=== PATIENT | female | born 1955 | race American Indian/Alaskan Native ===

== ENCOUNTER 2017-01-22 12:39 | Emergency (ER) | payer MEDICARE ==
[2017-01-22 13:20] VITALS: BP 111/72
--- NOTE | 2017-01-22 15:04 | Emergency Department Report ---
HPI - General Chief Complaint: Pain General Time Seen by Provider: 01/22/17 14:59 - HPI HPI: She is a 61-year-old female with a history of DJD and C-spine surgery in 2008 who presents to ED complaining of back of the neck pain to shoulder pain 10 days. Patient states the past couple of weeks she's been under a lot of stress lifting her sick brother in law that she is taking care of. Patient states she decided 6 deaths in the family and has been under a lot of stress. Patient states the heavy lifting and started to affect her DJD and is causing some pain in her neck. Describes pain as aching in nature and nonradiating localized to her back of her shoulders. She denies any recent trauma Denies fevers/chills/nausea/vomiting/pain or any other problems. ED Past Medical Hx - Past Medical History Previous Medical History?: Yes Hx Arthritis: Yes Additional medical history: DJD, Cervical Spine pain, Back pain - Surgical History Past Surgical History?: Yes Additional Surgical History: cervical spine surgery, x2, Ectopic , Bunionectomy on both feet - Social History Smoking Status: Current Every Day Smoker Substance Use Type: Alcohol, Prescribed - Medications Home Medications: Home Medications Medication Instructions Recorded Confirmed Last Taken Type Baclofen [Lioresal] 5 mg PO TID #24 tab 01/22/17 Unknown Rx Diclofenac Potassium 50 mg PO DAILY #30 tablet 01/22/17 Unknown Rx Promethazine /Codeine 5 ml PO Q6H PRN #60 ml 01/22/17 Unknown Rx [Phenergan/Codeine 6.25-10 mg/5Ml] traMADol [Ultram] 50 mg PO Q6HR PRN #24 tablet 01/22/17 Unknown Rx ED Review of Systems ROS: Stated complaint: DEGENERATE BONE DISEASE/PAIN Other details as noted in HPI Constitutional: denies: chills, fever Eyes: denies: eye pain, eye discharge, vision change ENT: denies: ear pain, throat pain Respiratory: denies: cough, shortness of breath, wheezing Cardiovascular: denies: chest pain, palpitations Endocrine: no symptoms reported Gastrointestinal: denies: abdominal pain, nausea, diarrhea Genitourinary: denies: urgency, dysuria, discharge Musculoskeletal: denies: back pain, joint swelling, arthralgia Skin: denies: rash, lesions Neurological: denies: headache, weakness, paresthesias Psychiatric: denies: anxiety, depression Hematological/Lymphatic: denies: easy bleeding, easy bruising Physical Exam - Physical Exam Vital Signs: Vital Signs 01/22/17 13:15 Temperature 97.5 F L Pulse Rate 75 Respiratory 18 Rate Blood Pressure 111/72 O2 Sat by Pulse 99 Oximetry Physical Exam: GENERAL: Alert and oriented x3, no apparent distress, Normal Gait, atraumatic. HEAD: Head is normocephalic and a-traumatic. EYES: Extra ocular muscles are intact. Pupils are equal, round, and reactive to light and accommodation. NECK: Supple. Non edematous. No lymphadenopathy or thyromegaly. No C-spine tenderness. Tenderness to palpation of the trapezius muscles. Full range of motion of the neck LUNGS: Symetrical with respiration, No wheezing, no rales or crackles, CTAB. HEART: S1, S2 present, regular rate and rhythm without murmur, no rubs, no gallops. Non tender to palpation EXTREMITIES/MUSCULOSKELETAL: No cyanosis, clubbing, rash, lesions or edema. Full ROM bilaterally. UE/LE Pulses 2+ bilaterally. NEUROLOGIC: The patient is cooperative with no focal neurologic deficits. Cranial nerves II through XII are grossly intact. Normal speech. PSYCHIATRIC: Mood is congruent with affect, denies suicidal or homicidal ideations. SKIN: Warm and dry, No lesions, No ulceration or induration present. ED Course Vital Signs 01/22/17 13:15 Temperature 97.5 F L Pulse Rate 75 Respiratory 18 Rate Blood Pressure 111/72 O2 Sat by Pulse 99 Oximetry ED Medical Decision Making - Medical Decision Making 61-year-old female presents with cervical radiculopathy. ED course: Patient received prednisone, Toradol, pain medication and ED today. His constipation or follow-up with her primary care physician Dr. Curtis Discussed the patient to follow-up with orthopedics as referred. Discussed with the patient to take her medication as prescribed and follow up. Status signs the patient is in no acute distress she reports feeling better prior to discharge. Critical care attestation.: If time is entered above; I have spent that time in minutes in the direct care of this critically ill patient, excluding procedure time. ED Disposition Clinical Impression: Cervical radiculopathy Disposition: - TO HOME OR SELFCARE Is pt being admited?: No Does the pt Need Aspirin: No Condition: Stable Instructions: Cervical Radiculopathy (ED) Prescriptions: Baclofen [Lioresal] 5 mg PO TID #24 tab Diclofenac Potassium 50 mg PO DAILY #30 tablet Promethazine /Codeine [Phenergan/Codeine 6.25-10 mg/5Ml] 5 ml PO Q6H PRN #60 ml PRN Reason: cough traMADol [Ultram] 50 mg PO Q6HR PRN #24 tablet PRN Reason: Pain Referrals: PRIMARY CARE, [Primary Care Provider] - 3-5 Days AD CLARKE MD [Referring] - 3-5 Days MITCHELL VALDES MD [Staff Physician] - 3-5 Days Forms: Work/School Release Form(ED), Accompanied Note Time of Disposition: 15:39
[2017-01-22] MEDS ORDERED: DELTASONE PO ONE (15:14)
[2017-01-22] MEDS ORDERED: NORCO 5/325 PO ONE (15:14)
[2017-01-22] MEDS ORDERED: TORADOL IM ONE (15:14)
== END 2017-01-22 16:08 | disposition home or self-care (01) ==
LOC: ED 12:39
DX: M54.12 Radiculopathy, cervical region (principal); M19.90 Unspecified osteoarthritis, unspecified site; F17.210 Nicotine dependence, cigarettes, uncomplicated
CPT/HCPCS: 96372; 99282; J1885; J7512

== ENCOUNTER 2017-06-12 13:44 | Emergency (ER) | payer MEDICARE ==
[2017-06-12 14:04] VITALS: BP 119/84
--- NOTE | 2017-06-12 16:47 | Emergency Department Report ---
ED Medical Clearance HPI - General Chief complaint: Medical Clearance Stated complaint: NEEDS MEDICAL CLEARANCE Time Seen by Provider: 06/12/17 16:43 Source: patient Mode of arrival: Ambulatory Limitations: No Limitations - History of Present Illness Initial comments: This is a 62 y.o. F, requesting clearance for [employer]. States she is bipolar and been off her meds for months. She has been self medicating with cocaine, but now the world seems overwhelming for her right now. Denies SI/HI. -: month(s) (3-6 months, unsure) Reason for Medical Clearance: psychiatric condition (bipolar) Alledged Intoxication: No Compliant with Home Medications: No (Stopped taking bipolar medicine months ago) Traumatic Symptoms: denies traumatic injury Associated Symptoms: denies: chest pain, shortness of breath, palpitations, diaphoresis, denies other symptoms, confusion, cough, fever/chills, headaches, anorexia, malaise, nausea/vomiting, rash, seizure, syncope, weakness Treatments Prior to Arrival: none, other Home medications: Previous Rx's Medication Instructions Recorded Last Taken Type Baclofen [Lioresal] 5 mg PO TID #24 tab 01/22/17 Unknown Rx Diclofenac Potassium 50 mg PO DAILY #30 tablet 01/22/17 Unknown Rx Promethazine /Codeine 5 ml PO Q6H PRN #60 ml 01/22/17 Unknown Rx [Phenergan/Codeine 6.25-10 mg/5Ml] traMADol [Ultram] 50 mg PO Q6HR PRN #24 tablet 01/22/17 Unknown Rx Sertraline [Zoloft] 25 mg PO QDAY 30 Days #30 tab 06/12/17 Unknown Rx Allergies/Adverse reactions: Allergies Allergy/AdvReac Type Severity Reaction Status Date / Time No Known Allergies Allergy Unverified 11/08/14 09:26 ED Review of Systems ROS: Stated complaint: NEEDS MEDICAL CLEARANCE Other details as noted in HPI Constitutional: no symptoms reported Eyes: as per HPI ENT: as per HPI Respiratory: no symptoms reported Cardiovascular: as per HPI Endocrine: no symptoms reported Neurological: as per HPI Psychiatric: anxiety, depression. denies: auditory hallucinations, visual hallucinations, homicidal thoughts, suicidal thoughts ED Past Medical Hx - Past Medical History Previous Medical History?: Yes Hx Arthritis: Yes Hx Psychiatric Treatment: Yes (Depression, Anxiety, bi-polar) Additional medical history: DJD, Cervical Spine pain, Back pain - Surgical History Past Surgical History?: Yes Additional Surgical History: cervical spine surgery, x2, Ectopic , Bunionectomy on both feet - Social History Smoking Status: Never Smoker Substance Use Type: Alcohol, Cocaine - Medications Home Medications: Home Medications Medication Instructions Recorded Confirmed Last Taken Type Baclofen [Lioresal] 5 mg PO TID #24 tab 01/22/17 Unknown Rx Diclofenac Potassium 50 mg PO DAILY #30 tablet 01/22/17 Unknown Rx Promethazine /Codeine 5 ml PO Q6H PRN #60 ml 01/22/17 Unknown Rx [Phenergan/Codeine 6.25-10 mg/5Ml] traMADol [Ultram] 50 mg PO Q6HR PRN #24 tablet 01/22/17 Unknown Rx Sertraline [Zoloft] 25 mg PO QDAY 30 Days #30 tab 06/12/17 Unknown Rx ED Physical Exam - General Limitations: No Limitations General appearance: alert, in no apparent distress, other (tearful) - Head Head exam: Present: normal inspection - Eye Eye exam: Present: normal appearance, PERRL. Absent: EOMI, scleral icterus, conjunctival injection, nystagmus, periorbital swelling, periorbital tenderness - Respiratory Respiratory exam: Present: normal lung sounds bilaterally. Absent: respiratory distress, wheezes, rales, rhonchi, stridor, chest wall tenderness, accessory muscle use, decreased breath sounds, prolonged expiratory - Cardiovascular Cardiovascular Exam: Present: regular rate, normal rhythm, normal heart sounds. Absent: bradycardia, tachycardia, irregular rhythm, systolic murmur, diastolic murmur, rubs, gallop, clicks - GI/Abdominal GI/Abdominal exam: Present: soft, normal bowel sounds. Absent: distended, tenderness, guarding, rebound, rigid, diminished bowel sounds, hyperactive bowel sounds, hypoactive bowel sounds, organomegaly, mass, bruit, pulsatile mass , hernia - Neurological Exam Neurological exam: Present: alert, oriented X3, CN II-XII intact, normal gait. Absent: altered, abnormal gait, motor sensory deficit, reflexes normal - Psychiatric Psychiatric exam: Present: depressed. Absent: normal affect, normal mood, anxious, flat affect, manic, homicidal ideation, suicidal ideation - Skin Skin exam: Present: warm, dry, intact. Absent: normal color, rash, cyanosis, diaphoretic, erythema, urticaria, vesicles, petechiae, pallor, abrasion, ecchymosis ED Course Vital Signs 06/12/17 13:58 Temperature 98.2 F Pulse Rate 68 Respiratory 98 H Rate Blood Pressure 119/84 O2 Sat by Pulse 100 Oximetry ED Disposition Clinical Impression: Depression, acute, Drug abuse and dependence Disposition: DC-01 TO HOME OR SELFCARE Is pt being admited?: No Does the pt Need Aspirin: No Condition: Stable Instructions: Depression (ED), Suicide Prevention for Adults (ED), Medical Clearance for Substance Abuse Treatment (ED) Additional Instructions: Nick Snow [facility] [phone] Prescriptions: Sertraline [Zoloft] 25 mg PO QDAY 30 Days #30 tab Referrals: Michelle Salas [Other] - 3-5 Days Time of Disposition: 17:11 Print Language: KAZAKH
[2017-06-12 17:33] LABS: Urine Drugs of Abuse Note Disclamer
== END 2017-06-12 18:19 | disposition home or self-care (01) ==
LOC: ED 13:44
DX: F31.9 Bipolar disorder, unspecified (principal); F14.20 Cocaine dependence, uncomplicated; M19.90 Unspecified osteoarthritis, unspecified site; F41.9 Anxiety disorder, unspecified; Z79.899 Other long term (current) drug therapy
CPT/HCPCS: 80307; 99283

== ENCOUNTER 2018-01-30 16:58 | Emergency (ER) | payer MEDICARE ==
[2018-01-30 17:21] VITALS: BP 103/70
[2018-01-30] MEDS ORDERED: TYLENOL PO ONE (17:21)
[2018-01-30 18:14] LABS: Bacteria,Urine 1+ /HPF (Negative); Bilirubin,Urine NEG (Negative); Blood,Urine MOD (Negative); Color,Urine Yellow (Yellow); Mucus,Urine FEW /HPF
--- NOTE | 2018-01-30 22:55 | Emergency Department Report ---
ED General Adult HPI - General Chief complaint: Weakness Stated complaint: FLU LIKE SYMPTOMS Time Seen by Provider: 01/30/18 22:47 Source: patient Mode of arrival: Ambulatory Limitations: No Limitations - History of Present Illness Initial comments: 62-year-old -[place] female presents to the emergency room for complaints of fever or chills lymph node enlargement urinary frequency urinary urgency for the last 5 days. Patient reports that she tried to get in her primary care doctor's office but he had no openings. Patient reports a past medical history of bipolar depression DJD, cervical spine pain back pain. She is currently stopped taking her Zoloft in the last month. Patient did come in febrile at 101.3 in triage. -: days(s) (5) Severity scale (0 -10): 3 Consistency: intermittent Improves with: none Worsens with: none Associated Symptoms: fever/chills Treatments Prior to Arrival: none - Related Data Previous Rx's Medication Instructions Recorded Last Taken Type Baclofen [Lioresal] 5 mg PO TID #24 tab 01/22/17 Unknown Rx Diclofenac Potassium 50 mg PO DAILY #30 tablet 01/22/17 Unknown Rx Promethazine /Codeine 5 ml PO Q6H PRN #60 ml 01/22/17 Unknown Rx [Phenergan/Codeine 6.25-10 mg/5Ml] traMADol [Ultram] 50 mg PO Q6HR PRN #24 tablet 01/22/17 Unknown Rx Sertraline [Zoloft] 25 mg PO QDAY 30 Days #30 tab 06/12/17 Unknown Rx Nitrofurantoin Monohyd/M-Cryst 100 mg PO BID 10 Days #20 capsule 01/30/18 Unknown Rx [Macrobid 100 mg Capsule] Allergies Allergy/AdvReac Type Severity Reaction Status Date / Time No Known Allergies Allergy Verified 01/30/18 17:17 ED Review of Systems ROS: Stated complaint: FLU LIKE SYMPTOMS Other details as noted in HPI Constitutional: chills, fever Genitourinary: urgency, frequency Musculoskeletal: denies: back pain, joint swelling, arthralgia Skin: denies: rash, lesions Neurological: denies: headache, weakness, paresthesias Psychiatric: denies: anxiety, depression ED Past Medical Hx - Past Medical History Hx Arthritis: Yes Hx Psychiatric Treatment: Yes (Depression, Anxiety, bi-polar) Additional medical history: DJD, Cervical Spine pain, Back pain - Surgical History Additional Surgical History: cervical spine surgery, x2, Ectopic , Bunionectomy on both feet - Social History Smoking Status: Current Some Day Smoker Substance Use Type: None - Medications Home Medications: Home Medications Medication Instructions Recorded Confirmed Last Taken Type Baclofen [Lioresal] 5 mg PO TID #24 tab 01/22/17 Unknown Rx Diclofenac Potassium 50 mg PO DAILY #30 tablet 01/22/17 Unknown Rx Promethazine /Codeine 5 ml PO Q6H PRN #60 ml 01/22/17 Unknown Rx [Phenergan/Codeine 6.25-10 mg/5Ml] traMADol [Ultram] 50 mg PO Q6HR PRN #24 tablet 01/22/17 Unknown Rx Sertraline [Zoloft] 25 mg PO QDAY 30 Days #30 tab 06/12/17 Unknown Rx Nitrofurantoin Monohyd/M-Cryst 100 mg PO BID 10 Days #20 capsule 01/30/18 Unknown Rx [Macrobid 100 mg Capsule] ED Physical Exam - General Limitations: No Limitations General appearance: alert, in no apparent distress - Head Head exam: Present: atraumatic, normocephalic - Eye Eye exam: Present: normal appearance - ENT ENT exam: Present: mucous membranes moist - Respiratory Respiratory exam: Present: normal lung sounds bilaterally. Absent: respiratory distress - Cardiovascular Cardiovascular Exam: Present: regular rate, normal rhythm. Absent: systolic murmur, diastolic murmur, rubs, gallop - GI/Abdominal GI/Abdominal exam: Present: soft. Absent: distended, tenderness, guarding - Extremities Exam Extremities exam: Present: normal inspection - Back Exam Back exam: Present: normal inspection - Neurological Exam Neurological exam: Present: alert, oriented X3 - Psychiatric Psychiatric exam: Present: normal affect, normal mood - Skin Skin exam: Present: warm, dry, intact, normal color. Absent: rash ED Course Vital Signs 01/30/18 01/30/18 17:17 21:13 Temperature 101.3 F H 98.2 F Pulse Rate 89 Respiratory 16 Rate Blood Pressure 103/70 O2 Sat by Pulse 97 Oximetry Critical care attestation.: If time is entered above; I have spent that time in minutes in the direct care of this critically ill patient, excluding procedure time. ED Disposition Clinical Impression: UTI (urinary tract infection) Qualifiers: Urinary tract infection type: acute cystitis Hematuria presence: with hematuria Qualified Code(s): N30.01 - Acute cystitis with hematuria Disposition: TO HOME OR SELFCARE Is pt being admited?: No Does the pt Need Aspirin: No Condition: Stable Instructions: Urinary Tract Infection in Women (ED) Additional Instructions: Please complete antibiotics as prescribed. Please increase her fluid intake such as water by 1 L. Please follow-up with your primary care provider in the next 3-5 days to have a repeat urinalysis. Prescriptions: Nitrofurantoin Monohyd/M-Cryst [Macrobid 100 mg Capsule] 100 mg PO BID 10 Days # 20 capsule Referrals: PRIMARY CARE, [Primary Care Provider] - 3-5 Days Forms: Work/School Release Form(ED)
== END 2018-01-30 23:22 | disposition home or self-care (01) ==
LOC: ED 16:58
DX: N30.01 Acute cystitis with hematuria (principal); M19.90 Unspecified osteoarthritis, unspecified site; F31.9 Bipolar disorder, unspecified; F41.9 Anxiety disorder, unspecified; Z72.0 Tobacco use; Z90.89 Acquired absence of other organs
CPT/HCPCS: 81001; 87086; 99283

== ENCOUNTER 2018-06-04 14:17 | Outpatient (CLI) | payer MEDICARE ==
[2018-06-04 14:44] LABS: Basophils % (Auto) 0.3 % (0.0-1.8); Eosinophils % (Auto) 0.9 % (0.0-4.3); Hematocrit 34.6 % (30.3-42.9); Hemoglobin 11.8 gm/dl (10.1-14.3); Lymphocytes % (Auto) 30.7 % (13.4-35.0); Mean Corpuscular HGB Conc 34 % (30-34); Mean Corpuscular Volume 104 fl (79-97); Monocytes # (Auto) 0.3 K/mm3 (0.0-0.8); Monocytes % (Auto) 8.5 % (0.0-7.3); Platelet Count 152 K/mm3 (140-440); Red Blood Count 3.32 M/mm3 (3.65-5.03); Red Cell Distribution Width 12.9 % (13.2-15.2)
[2018-06-04 15:08] LABS: Alanine Aminotransferase 22 units/L (7-56)
== END 2018-06-04 14:18 | disposition home or self-care (01) ==
LOC: LAB 14:17
PROVIDERS: ATTEND Psychiatry & Neurology Psychiatry
DX: Z79.899 Other long term (current) drug therapy (principal); Z87.891 Personal history of nicotine dependence; M19.90 Unspecified osteoarthritis, unspecified site
CPT/HCPCS: 36415; 80164; 84450; 84460; 85025

== ENCOUNTER 2018-07-23 10:36 | Outpatient (CLI) | payer MEDICARE ==
--- NOTE | 2018-07-24 08:09 | Mammography Report ---
BILATERAL DIGITAL SCREENING MAMMOGRAM with CAD: 07/23/18 10:36:00 CLINICAL: Routine screening. COMPARISON:03/14/16 FINDINGS: The breasts are heterogeneously dense, which may obscure small masses. No mass, architectural distortion or suspicious calcifications. IMPRESSION: No mammographic evidence of malignancy. BI-RADS CATEGORY: 1 - - Negative RECOMMENDATION: Routine mammographic screening in one year. COMMENT: Patient follow-up letters are generated by our [employer] application.
== END 2018-07-23 10:37 | disposition home or self-care (01) ==
LOC: MAMMO 10:36
PROVIDERS: ATTEND Internal Medicine
DX: Z12.31 Encounter for screening mammogram for malignant neoplasm of breast (principal); M19.90 Unspecified osteoarthritis, unspecified site
CPT/HCPCS: 77067

== ENCOUNTER 2018-08-07 10:02 | Outpatient (CLI) | payer MEDICARE | END 2018-08-07 10:03 | disposition home or self-care (01) | LOC: LAB 10:02 | PROVIDERS: ATTEND Psychiatry & Neurology Psychiatry | DX: F31.4 Bipolar disorder, current episode depressed, severe, without psychotic features (principal); M19.90 Unspecified osteoarthritis, unspecified site; Z87.891 Personal history of nicotine dependence | CPT/HCPCS: 36415; 80164 ==

== ENCOUNTER 2019-06-03 15:27 | Emergency (ER) | payer MEDICARE ==
--- NOTE | 2019-06-03 15:51 | Event Note ---
ED Screening Note Date of service: 06/03/19 Time: 15:44 ED Screening Note: reports CP and sob. Pain to mid chest and in shoulders. Pain feels like something heavy on chest and like ribs breaking. Cold x 3 weeks with chills. Runnynose. Reports bodyache. Reports h/o smoker, eczema and depression. Taking nyquil, alkaseltzer, otc cough syrup A&O x3 nad Lungs, congested cough, rhonci cleared with coughing CV: S1S2 Regular Chest pain Shortness of breath Cough This initial assessment/diagnostic orders/clinical plan/treatment(s) is/are subject to change based on patients health status, clinical progression and re- assessment by fellow clinical providers in the ED. Further treatment and workup at subsequent clinical providers discretion. Patient/guardian urged not to elope from the ED as their condition may be serious if not clinically assessed and managed. Initial orders include: EKG,CXR,Labs
--- NOTE | 2019-06-03 16:02 | Emergency Department Report ---
ED Shortness of Breath HPI - General Chief Complaint: Dyspnea/Respdistress Stated Complaint: CHEST PAIN/VINAYAK Time Seen by Provider: 06/03/19 15:44 Source: patient Mode of arrival: Ambulatory Limitations: No Limitations - History of Present Illness Initial Comments: Patient is 64 years old female with no significant past medical history except for previous neck surgery 10 years ago. Patient presented to the ER complaining of two-week history of cough, congestion and chest pain. Patient describes her chest pain is sharp and increases with coughing and movement. Patient denied any fever or chills. No nausea or vomiting. MD Complaint: cough, chest pain - Related Data Previous Rx's Medication Instructions Recorded Last Taken Type Baclofen [Lioresal] 5 mg PO TID #24 tab 01/22/17 Unknown Rx Diclofenac Potassium 50 mg PO DAILY #30 tablet 01/22/17 Unknown Rx Promethazine /Codeine 5 ml PO Q6H PRN #60 ml 01/22/17 Unknown Rx [Phenergan/Codeine 6.25-10 mg/5Ml] traMADoL [Ultram] 50 mg PO Q6HR PRN #24 tablet 01/22/17 Unknown Rx Sertraline [Zoloft] 25 mg PO QDAY 30 Days #30 tab 06/12/17 Unknown Rx Nitrofurantoin Monohyd/M-Cryst 100 mg PO BID 10 Days #20 capsule 01/30/18 Unknown Rx [Macrobid 100 mg Capsule] Allergies Allergy/AdvReac Type Severity Reaction Status Date / Time No Known Allergies Allergy Verified 01/30/18 17:17 ED Review of Systems ROS: Stated complaint: CHEST PAIN/VINAYAK Other details as noted in HPI Comment: All other systems reviewed and negative Constitutional: denies: chills, fever Respiratory: cough, shortness of breath. denies: SOB with exertion, SOB at rest, wheezing Cardiovascular: chest pain. denies: palpitations, dyspnea on exertion Gastrointestinal: denies: abdominal pain, nausea, vomiting Neurological: denies: headache, weakness, numbness, paresthesias, confusion, abnormal gait ED Past Medical Hx - Past Medical History Previous Medical History?: Yes Hx Arthritis: Yes Hx Psychiatric Treatment: Yes (Depression, Anxiety, bi-polar) Additional medical history: DJD, Cervical Spine pain, Back pain - Surgical History Past Surgical History?: Yes Additional Surgical History: cervical spine surgery, x2, Ectopic , Bunionectomy on both feet - Social History Smoking Status: Current Some Day Smoker Substance Use Type: None - Medications Home Medications: Home Medications Medication Instructions Recorded Confirmed Last Taken Type Baclofen [Lioresal] 5 mg PO TID #24 tab 01/22/17 Unknown Rx Diclofenac Potassium 50 mg PO DAILY #30 tablet 01/22/17 Unknown Rx Promethazine /Codeine 5 ml PO Q6H PRN #60 ml 01/22/17 Unknown Rx [Phenergan/Codeine 6.25-10 mg/5Ml] traMADoL [Ultram] 50 mg PO Q6HR PRN #24 tablet 01/22/17 Unknown Rx Sertraline [Zoloft] 25 mg PO QDAY 30 Days #30 tab 06/12/17 Unknown Rx Nitrofurantoin Monohyd/M-Cryst 100 mg PO BID 10 Days #20 capsule 01/30/18 Unknown Rx [Macrobid 100 mg Capsule] ED Physical Exam - General Limitations: No Limitations General appearance: alert, in no apparent distress - Head Head exam: Present: atraumatic, normocephalic, normal inspection - Eye Eye exam: Present: normal appearance - ENT ENT exam: Present: normal exam, normal orophraynx, mucous membranes moist - Neck Neck exam: Present: normal inspection, full ROM. Absent: tenderness, meningismus, lymphadenopathy, thyromegaly - Respiratory Respiratory exam: Present: normal lung sounds bilaterally, chest wall tenderness. Absent: respiratory distress, wheezes, rales, rhonchi, stridor, accessory muscle use, decreased breath sounds, prolonged expiratory - Cardiovascular Cardiovascular Exam: Present: regular rate, normal rhythm, normal heart sounds - GI/Abdominal GI/Abdominal exam: Present: soft, normal bowel sounds. Absent: distended, tenderness, guarding, rebound, rigid, organomegaly, mass, bruit, pulsatile mass, hernia - Extremities Exam Extremities exam: Present: normal inspection, full ROM, normal capillary refill. Absent: pedal edema, calf tenderness - Back Exam Back exam: Present: normal inspection, full ROM. Absent: CVA tenderness (R), CVA tenderness (L), muscle spasm, paraspinal tenderness, vertebral tenderness - Neurological Exam Neurological exam: Present: alert, oriented X3, CN II-XII intact, normal gait, reflexes normal - Psychiatric Psychiatric exam: Present: normal mood - Skin Skin exam: Present: warm, intact, normal color ED Course Vital Signs 06/03/19 06/03/19 06/03/19 15:41 16:10 16:11 Temperature 98.1 F 98.2 F Pulse Rate 76 61 Respiratory 22 17 14 Rate Blood Pressure 99/74 Blood Pressure 116/80 [Left] O2 Sat by Pulse 99 97 100 Oximetry 06/03/19 06/03/19 06/03/19 16:15 16:37 16:45 Temperature Pulse Rate 67 Respiratory 16 Rate Blood Pressure 128/88 128/88 116/82 Blood Pressure [Left] O2 Sat by Pulse 99 99 100 Oximetry 06/03/19 06/03/19 06/03/19 17:00 17:15 17:30 Temperature Pulse Rate 65 60 61 Respiratory 24 14 21 Rate Blood Pressure 114/75 104/68 99/64 Blood Pressure [Left] O2 Sat by Pulse 100 95 98 Oximetry 06/03/19 06/03/19 06/03/19 17:46 18:00 18:15 Temperature Pulse Rate 64 60 61 Respiratory 13 15 20 Rate Blood Pressure 99/64 106/69 108/75 Blood Pressure [Left] O2 Sat by Pulse 90 98 Oximetry 06/03/19 06/03/19 06/03/19 18:30 18:45 19:00 Temperature Pulse Rate 58 L 56 L 63 Respiratory 10 L 17 20 Rate Blood Pressure 99/59 110/73 104/70 Blood Pressure [Left] O2 Sat by Pulse 97 99 98 Oximetry 06/03/19 19:15 Temperature Pulse Rate 55 L Respiratory 12 Rate Blood Pressure 108/69 Blood Pressure [Left] O2 Sat by Pulse 97 Oximetry ED Medical Decision Making - Lab Data Result diagrams: 06/03/19 16:02 06/03/19 16:02 - EKG Data -: EKG Interpreted by Al EKG shows normal: sinus rhythm Rate: normal - EKG Data Interpretation: no acute changes - Radiology Data Radiology results: report reviewed - Medical Decision Making Patient is 64 years old female with no significant past medical history except for previous neck surgery 10 years ago. Patient presented to the ER complaining of two-week history of cough, congestion and chest pain. Patient describes her chest pain is sharp and increases with coughing and movement. Patient denied any fever or chills. No nausea or vomiting. Labs reviewed and is unremarkable including 2 sets of troponin. Chest x-ray is unremarkable. Patient stated that suspends completely resolved. Patient symptoms consistent with acute bronchitis. Patient given a prescription for amoxicillin and Robitussin advised to follow-up with her primary care physician in the next 2-3 days and to return to the ER if symptoms are not improved Critical care attestation.: If time is entered above; I have spent that time in minutes in the direct care of this critically ill patient, excluding procedure time. ED Disposition Clinical Impression: Chest pain, Acute bronchitis, Costochondritis, acute Disposition: DC-01 TO HOME OR SELFCARE Is pt being admited?: No Condition: Stable Instructions: Chest Pain (ED), Acute Bronchitis (ED), Costochondritis (ED) Referrals: PRIMARY CARE, [Primary Care Provider] - 3-5 Days
[2019-06-03 16:41] LABS: Basophils % (Auto) 0.4 % (0.0-1.8); Eosinophils % (Auto) 0.9 % (0.0-4.3); Hematocrit 41.9 % (30.3-42.9); Lymphocytes # (Auto) 0.6 K/mm3 (1.2-5.4); Lymphocytes % (Auto) 13.5 % (13.4-35.0); Mean Corpuscular HGB Conc 33 % (30-34); Mean Corpuscular Volume 106 fl (79-97); Monocytes # (Auto) 0.4 K/mm3 (0.0-0.8); Monocytes % (Auto) 8.7 % (0.0-7.3); Platelet Count 250 K/mm3 (140-440); Red Blood Count 3.95 M/mm3 (3.65-5.03); Red Cell Distribution Width 12.7 % (13.2-15.2)
[2019-06-03 16:57] LABS: Alanine Aminotransferase 23 units/L (7-56); Albumin 4.6 g/dL (3.9-5); BUN/Creatinine Ratio 11; Blood Urea Nitrogen 9 mg/dL (7-17); Calcium 10.2 mg/dL (8.4-10.2); Hemolysis Index 58
--- NOTE | 2019-06-03 17:14 | XRay Report ---
CHEST 2 VIEWS INDICATION / CLINICAL INFORMATION: cough, cp, chills 3 weeks. COMPARISON: None available. FINDINGS: SUPPORT DEVICES: None. HEART / MEDIASTINUM: No significant abnormality. LUNGS / PLEURA: No significant pulmonary or pleural abnormality. No pneumothorax. ADDITIONAL FINDINGS: Cholecystectomy clips. Cervical fixation hardware. IMPRESSION: 1. No acute findings. Signer Name: Nadia Leigh MD Signed: 06/03/2019 5:09 PM Workstation Name: [email or web address]
[2019-06-03] MEDS ORDERED: ONDANSETRON 4 MG/2 ML INJ IV ONE (19:28)
[2019-06-03] MEDS ORDERED: fentaNYL 250 MCG/5 ML INJ IV ONE (19:29)
[2019-06-03] MEDS ORDERED: fentaNYL 100 MCG/2 ML INJ ONE (19:37)
[2019-06-03] MEDS ORDERED: AMOXICILLIN 500 MG CAP PO ONE (21:20)
[2019-06-03 22:53] VITALS: BP 106/71
== END 2019-06-03 21:00 | disposition home or self-care (01) ==
LOC: ED 15:27
DX: J20.9 Acute bronchitis, unspecified (principal); M94.0 Chondrocostal junction syndrome [Tietze]; M19.90 Unspecified osteoarthritis, unspecified site; F32.9 Major depressive disorder, single episode, unspecified; F31.9 Bipolar disorder, unspecified; F17.200 Nicotine dependence, unspecified, uncomplicated
CPT/HCPCS: 36415; 71046; 80053; 84484; 85025; 93005; 93010; 96374; 96375; 99284; J2405; J3010

== ENCOUNTER 2019-11-27 21:40 | Emergency (ER) | payer MEDICARE ==
--- NOTE | 2019-11-27 23:51 | Emergency Department Report ---
ED Psych HPI - General Chief Complaint: Anxiety Stated Complaint: ANXEITY ATTACK Time Seen by Provider: 11/27/19 23:09 Source: patient Mode of arrival: Ambulatory - History of Present Illness Initial Comments: 64-year-old female with history of bipolar disorder presents to ED with depression and suicidal ideation. Patient reports that she took 15 Ativan pills 3 hours ago, around 8 PM. When asked if this is a suicide attempt, patient states, "sort of." Patient also admits to drinking alcohol today. She denies any drug use. MD Complaint: suicidal ideation, feels depressed -: This evening Associated Psychiatric Symptoms: depression, suicidal ideation Quality: constant Improves With: none Worsens With: none Context: significant life stressor Associated Symptoms: denies other symptoms Treatments Prior to Arrival: none If Self Harm: intentional overdose - Related Data Previous Rx's Medication Instructions Recorded Last Taken Type Baclofen [Lioresal] 5 mg PO TID #24 tab 01/22/17 Unknown Rx Diclofenac Potassium 50 mg PO DAILY #30 tablet 01/22/17 Unknown Rx Promethazine /Codeine 5 ml PO Q6H PRN #60 ml 01/22/17 Unknown Rx [Phenergan/Codeine 6.25-10 mg/5Ml] traMADoL [Ultram] 50 mg PO Q6HR PRN #24 tablet 01/22/17 Unknown Rx Sertraline [Zoloft] 25 mg PO QDAY 30 Days #30 tab 06/12/17 Unknown Rx Nitrofurantoin Monohyd/M-Cryst 100 mg PO BID 10 Days #20 capsule 01/30/18 Unknown Rx [Macrobid 100 mg Capsule] Amoxicillin [Amoxicillin TAB] 875 mg PO BID #14 tablet 06/03/19 Unknown Rx Naproxen [Naprosyn] 500 mg PO BID #14 tablet 06/03/19 Unknown Rx guaiFENesin [Robitussin] 5 ml PO TID PRN #100 ml 06/03/19 Unknown Rx Allergies Allergy/AdvReac Type Severity Reaction Status Date / Time No Known Allergies Allergy Verified 01/30/18 17:17 ED Review of Systems ROS: Stated complaint: ANXEITY ATTACK Other details as noted in HPI Comment: All other systems reviewed and negative Psychiatric: depression, suicidal thoughts. denies: auditory hallucinations, visual hallucinations, homicidal thoughts ED Past Medical Hx - Past Medical History Previous Medical History?: Yes Hx Arthritis: Yes Hx Psychiatric Treatment: Yes (Depression, Anxiety, bi-polar) Additional medical history: DJD, Cervical Spine pain, Back pain - Surgical History Past Surgical History?: Yes Additional Surgical History: cervical spine surgery, x2, Ectopic , Bunionectomy on both feet - Social History Smoking Status: Current Every Day Smoker Substance Use Type: None - Medications Home Medications: Home Medications Medication Instructions Recorded Confirmed Last Taken Type Baclofen [Lioresal] 5 mg PO TID #24 tab 01/22/17 Unknown Rx Diclofenac Potassium 50 mg PO DAILY #30 tablet 01/22/17 Unknown Rx Promethazine /Codeine 5 ml PO Q6H PRN #60 ml 01/22/17 Unknown Rx [Phenergan/Codeine 6.25-10 mg/5Ml] traMADoL [Ultram] 50 mg PO Q6HR PRN #24 tablet 01/22/17 Unknown Rx Sertraline [Zoloft] 25 mg PO QDAY 30 Days #30 tab 06/12/17 Unknown Rx Nitrofurantoin Monohyd/M-Cryst 100 mg PO BID 10 Days #20 capsule 01/30/18 Unknown Rx [Macrobid 100 mg Capsule] Amoxicillin [Amoxicillin TAB] 875 mg PO BID #14 tablet 06/03/19 Unknown Rx Naproxen [Naprosyn] 500 mg PO BID #14 tablet 06/03/19 Unknown Rx guaiFENesin [Robitussin] 5 ml PO TID PRN #100 ml 06/03/19 Unknown Rx ED Physical Exam - General Limitations: No Limitations General appearance: alert, in no apparent distress, appears intoxicated - Head Head exam: Present: atraumatic, normocephalic - Eye Eye exam: Present: normal appearance, PERRL, EOMI - ENT ENT exam: Present: mucous membranes moist - Neck Neck exam: Present: normal inspection - Respiratory Respiratory exam: Present: normal lung sounds bilaterally. Absent: respiratory distress - Cardiovascular Cardiovascular Exam: Present: regular rate, normal rhythm - GI/Abdominal GI/Abdominal exam: Absent: distended - Extremities Exam Extremities exam: Present: normal inspection - Neurological Exam Neurological exam: Present: alert, oriented X3 - Psychiatric Psychiatric exam: Present: depressed, suicidal ideation - Skin Skin exam: Present: warm, dry, intact, normal color ED Course Vital Signs 11/27/19 11/27/19 11/28/19 22:24 23:52 00:00 Temperature 98.6 F Pulse Rate 73 66 Respiratory 18 16 Rate Blood Pressure 135/89 127/81 Blood Pressure [Left] O2 Sat by Pulse 99 100 92 Oximetry 11/28/19 11/28/19 11/28/19 00:16 00:28 00:30 Temperature 98.0 F Pulse Rate 60 64 58 L Respiratory 13 16 15 Rate Blood Pressure 82/29 82/29 Blood Pressure 123/76 [Left] O2 Sat by Pulse 97 100 97 Oximetry 11/28/19 11/28/19 11/28/19 00:46 01:00 01:16 Temperature Pulse Rate 58 L 56 L 62 Respiratory 15 14 14 Rate Blood Pressure 82/29 95/59 95/59 Blood Pressure [Left] O2 Sat by Pulse 97 96 97 Oximetry 11/28/19 11/28/19 11/28/19 01:30 01:45 02:00 Temperature Pulse Rate 60 56 L 62 Respiratory 20 16 15 Rate Blood Pressure 95/59 95/59 101/62 Blood Pressure [Left] O2 Sat by Pulse 89 99 91 Oximetry 11/28/19 11/28/19 11/28/19 02:16 02:30 02:46 Temperature Pulse Rate 62 60 64 Respiratory 14 14 13 Rate Blood Pressure 95/59 95/59 95/59 Blood Pressure [Left] O2 Sat by Pulse 91 94 92 Oximetry 11/28/19 11/28/19 11/28/19 03:00 03:16 03:30 Temperature Pulse Rate 70 56 L 53 L Respiratory 18 16 13 Rate Blood Pressure 95/59 132/77 132/77 Blood Pressure [Left] O2 Sat by Pulse 98 99 98 Oximetry 11/28/19 11/28/19 11/28/19 03:46 04:00 04:16 Temperature 98.2 F Pulse Rate 55 L 60 54 L Respiratory 12 14 13 Rate Blood Pressure 132/77 105/74 105/74 Blood Pressure [Left] O2 Sat by Pulse 100 95 100 Oximetry 11/28/19 11/28/19 11/28/19 04:30 04:46 05:00 Temperature Pulse Rate 49 L 53 L 52 L Respiratory 13 14 18 Rate Blood Pressure 105/74 105/74 105/74 Blood Pressure [Left] O2 Sat by Pulse 99 99 99 Oximetry 11/28/19 11/28/19 11/28/19 05:16 05:30 05:46 Temperature Pulse Rate 51 L 51 L 51 L Respiratory 14 16 13 Rate Blood Pressure 112/79 112/79 112/79 Blood Pressure [Left] O2 Sat by Pulse 98 100 100 Oximetry 11/28/19 11/28/19 11/28/19 06:00 06:16 06:30 Temperature Pulse Rate 55 L 42 L 43 L Respiratory 14 16 15 Rate Blood Pressure 112/79 112/79 112/79 Blood Pressure [Left] O2 Sat by Pulse 98 100 95 Oximetry 11/28/19 11/28/19 11/28/19 06:46 07:00 07:15 Temperature Pulse Rate 46 L 44 L 50 L Respiratory 14 13 14 Rate Blood Pressure 134/89 134/89 112/79 Blood Pressure [Left] O2 Sat by Pulse 100 100 100 Oximetry 11/28/19 11/28/19 07:31 11:00 Temperature Pulse Rate 55 L 56 L Respiratory 13 16 Rate Blood Pressure 130/78 Blood Pressure 109/73 [Left] O2 Sat by Pulse 100 100 Oximetry ED Medical Decision Making - Lab Data Result diagrams: 11/27/19 23:42 11/27/19 23:42 - Medical Decision Making 64 yo F reports ETOH use and suicide attempt by taking 15 ativan pills 3 hrs prior to me examining her. Pt may have take some ativan, but I do not believe she took as many as she stated since she is alert and oriented with normal vitals and normal mentation. She is not drowsy or lethargic, but she does seem a bit intoxicated. Poison Control was contacted and advised to monitor pt for 8 hrs post-ingestion, which would be until 4AM. Labs unremarkable. Mental health consult ordered. Will dispo per psych. - Differential Diagnosis depression Critical care attestation.: If time is entered above; I have spent that time in minutes in the direct care of this critically ill patient, excluding procedure time. ED Disposition Clinical Impression: Depression, Suicidal ideations, Cocaine abuse Disposition: DC-01 TO HOME OR SELFCARE Is pt being admited?: No Condition: Stable Instructions: Cocaine Abuse (ED), Depression (ED), Suicide Prevention for Adults (ED) Additional Instructions: Please follow-up with a primary care physician as soon as you are able to do so when you are done with the psychiatric facility. Please avoid any further cocaine or illicit drug use. Call 911 or get to the closest emergency department with any thoughts of harming your self or others, or with any acute distress. Referrals: PRIMARY CARE, [Primary Care Provider] - [facility]
[2019-11-27 23:54] LABS: Basophils % (Auto) 0.5 % (0.0-1.8); Eosinophils # (Auto) 0.1 K/mm3 (0.0-0.4); Eosinophils % (Auto) 2.3 % (0.0-4.3); Hematocrit 39.2 % (30.3-42.9); Hemoglobin 13.2 gm/dl (10.1-14.3); Lymphocytes # (Auto) 1.3 K/mm3 (1.2-5.4); Lymphocytes % (Auto) 36.9 % (13.4-35.0); Mean Corpuscular HGB Conc 34 % (30-34); Mean Corpuscular Volume 106 fl (79-97); Monocytes # (Auto) 0.3 K/mm3 (0.0-0.8); Monocytes % (Auto) 8.5 % (0.0-7.3); Platelet Count 191 K/mm3 (140-440); Red Cell Distribution Width 13.5 % (13.2-15.2)
[2019-11-28 00:14] LABS: BUN/Creatinine Ratio 16; Blood Urea Nitrogen 11 mg/dL (7-17); Calcium 9.5 mg/dL (8.4-10.2); Hemolysis Index 13
[2019-11-28 01:05] LABS: Alanine Aminotransferase 14 units/L (7-56); Albumin 4.5 g/dL (3.9-5)
[2019-11-28 01:24] LABS: Bilirubin,Direct < 0.2 mg/dL (0-0.2)
[2019-11-28 02:11] LABS: RBC,Urine < 1.0 /HPF (0.0-6.0)
[2019-11-28 02:13] LABS: Bilirubin,Urine NEG (Negative); Blood,Urine MOD (Negative); Color,Urine Straw (Yellow); Protein,Urine <15 mg/dL mg/dL (Negative); Urobilinogen,Urine < 2.0 mg/dL (<2.0)
[2019-11-28 02:54] LABS: Amphetamine Screen,Urine PRESUMPTIVE NEGATIVE; Benzodiazepines Screen,Urine PRESUMPTIVE NEGATIVE; Cannabinoid Screen,Urine PRESUMPTIVE NEGATIVE; Methadone Screen,Urine PRESUMPTIVE NEGATIVE; Opiate Screen,Urine PRESUMPTIVE NEGATIVE
[2019-11-28 02:58] LABS: Cocaine Screen,Urine PRESUMPTIVE POSITIVE
[2019-11-28 12:56] VITALS: BP 109/73
== END 2019-11-28 15:04 | disposition home or self-care (01) ==
LOC: ED 21:40
DX: F32.9 Major depressive disorder, single episode, unspecified (principal); R45.851 Suicidal ideations; F14.10 Cocaine abuse, uncomplicated; M19.91 Primary osteoarthritis, unspecified site; F17.200 Nicotine dependence, unspecified, uncomplicated; Z98.890 Other specified postprocedural states; Z79.2 Long term (current) use of antibiotics; Z79.899 Other long term (current) drug therapy
CPT/HCPCS: 36415; 80048; 80076; 80307; 80320; 81001; 85025; 93005; G0480

== ENCOUNTER 2019-11-28 13:50 | Inpatient (IN) | payer MEDICARE ==
[2019-11-28] MEDS ORDERED: ZIPRASIDONE MESYLATE 20 MG VIAL IM PRN (14:05)
[2019-11-28 17:25] LABS: Basophils % (Auto) 0.5 % (0.0-1.8); Eosinophils # (Auto) 0.1 K/mm3 (0.0-0.4); Eosinophils % (Auto) 2.8 % (0.0-4.3); Hematocrit 38.7 % (30.3-42.9); Lymphocytes # (Auto) 0.7 K/mm3 (1.2-5.4); Lymphocytes % (Auto) 23.1 % (13.4-35.0); Mean Corpuscular HGB Conc 34 % (30-34); Mean Corpuscular Volume 106 fl (79-97); Monocytes # (Auto) 0.2 K/mm3 (0.0-0.8); Monocytes % (Auto) 6.3 % (0.0-7.3); Platelet Count 184 K/mm3 (140-440); Red Blood Count 3.64 M/mm3 (3.65-5.03); Red Cell Distribution Width 13.5 % (13.2-15.2)
[2019-11-28 17:27] LABS: Alanine Aminotransferase 14 units/L (7-56); Albumin 4.5 g/dL (3.9-5); BUN/Creatinine Ratio 10; Blood Urea Nitrogen 9 mg/dL (7-17); Calcium 9.7 mg/dL (8.4-10.2); Hemolysis Index 13; LDL Cholesterol,Direct 103 mg/dL (50-130)
[2019-11-28 17:48] LABS: Chol/HDL Ratio 2.14 %; HDL Cholesterol 100 mg/dL (40-59)
[2019-11-28] MEDS: traZODone 50 MG TAB PO SCH (21:47)
[2019-11-28] MEDS ORDERED: risperiDONE 0.25 MG TAB PO SCH (22:00)
--- NOTE | 2019-11-29 08:32 | History and Physical Report ---
GP History & Physical - History of Present Illness Date of admission: 11/28/19 Date of Examination: 11/29/19 Reason for Admission: Danger to self, Severe anxiety/depression History of Present Illness: Araceli Horta is a 64y/o female who states she was admitted to the [facility] floor for "depression and anxiety." During my interview with the patient, she is lying in bed. She is asleep. She easily arouses. She is oriented x 3. The patient makes fair eye contact. She is tearful at times during the interview. She verbalizes being "depressed." She also verbalizes being "suicidal with a plan to take pills." The patient says she "hears things but think they are in my mind." She says "it's hard to explain." The patient states she's had "two suicidal attempts" in the past. She says she's been admitted for psych related conditions "quite a few times." She says the last time she saw a psychiatrist was "last year." She says she was diagnosed with "bipolar disorder." The patient verbalized having "constant mood swings." She describes them as "up one minute, angry the next and then rock bottom." She says she takes "zoloft and trazodone." The patient also admits to using "crack a few days ago." She states she drinks alcohol "occasionally." She smokes "a pack of cigarets a week." PAST PSYCHIATRIC HISTORY: Diagnoses: Bipolar Suicide attempts or Self-harm behavior: twice Prior psychiatric hospitalizations: "quite a few times" Substance Abuse history: Crack, nicotine Previous psychiatric medications tried: Zoloft and Trazodone Outpatient treatment: Not at the present PAST MEDICAL HISTORY: None reported Family Psychiatric History: None reported or documented SOCIAL HISTORY Current living status: Homeless, was living with aunt Employment status: Retired Highest level of education: Some college Marital status: Legal history: Denies History of abuse: Crack REVIEW OF SYSTEMS Constitutional: Negative for weight loss ENT: Negative for stridor Respiratory: Negative for cough or hemoptysis All other systems reviewed and are negative MENTAL STATUS EXAMINATION General Appearance: Dressed appropriately Behavior: Tearful. Cooperative. Fair eye contact Mood: "Depressed" Affect: Congruent with stated mood Speech: Normal rate and tone Thought Process: Goal oriented Thought Content: Suicidal Ideation: Yes Homicidal Ideation: Denies Hallucinations: Yes Delusions: None elicited Insight and Judgment: Limited Memory/Cognition: Limited Assessment Bipolar Disorder, Severe, Current Episode Depressed w/Psychotic Features Treatment Plan Patient will be admitted for inpatient psychiatric evaluation, medication adjustment and close monitoring The patient's behavior, mood, sleep and appetite will be closely monitored. Patient will be enrolled in individual and group therapeutic sessions and encouraged to attend. Patient will be provided with a safe and structured environment. Patient's physical health needs will be addressed by the Hospitalist. Hospitalist Consulted Labs including CBC, CMP, Lipid profile and Hemoglobin A1C ordered Social Assessment will be completed and the Human Resources Records Clerk will work with patient and family to ensure a suitable and safe disposition Medication adjustment will be made as clinically indicated Usual Wellness Buddhist/Preservation: Restarted Home medications Increased Risperidone 0.5mg po BID Nicotine patch previously ordered The patient agreed on the treatment plan, understood the risk, benefit, alternative treatment, potential consequence of no treatment, and gave informed consent. - Certification Statement This is an acknowledgement statement that Nyida Horta is a 64y/o female who requires inpatient psychiatric admission for treatment which could reasonably be expected to improve the patient's condition for Major Depressive Disorder, Severe, with Psychotic Features Estimated period of time patient will need to remain in the hospital: [7] Plan for post-hospital care: [Outpatient] Legal Status: Voluntary Reaction to Hospitalization: Accepting Medications and Allergies Allergies Allergy/AdvReac Type Severity Reaction Status Date / Time No Known Allergies Allergy Verified 01/30/18 17:17 Home Medications Medication Instructions Recorded Confirmed Last Taken Type Baclofen [Lioresal] 5 mg PO TID #24 tab 01/22/17 11/29/19 Unknown Rx Diclofenac Potassium 50 mg PO DAILY #30 tablet 01/22/17 11/29/19 Unknown Rx Promethazine /Codeine 5 ml PO Q6H PRN #60 ml 01/22/17 11/29/19 Unknown Rx [Phenergan/Codeine 6.25-10 mg/5Ml] traMADoL [Ultram] 50 mg PO Q6HR PRN #24 tablet 01/22/17 11/29/19 Unknown Rx Sertraline [Zoloft] 25 mg PO QDAY 30 Days #30 tab 06/12/17 11/29/19 Unknown Rx Naproxen [Naprosyn] 500 mg PO BID #14 tablet 06/03/19 11/29/19 Unknown Rx guaiFENesin [Robitussin] 5 ml PO TID PRN #100 ml 06/03/19 11/29/19 Unknown Rx Active Meds: Active Medications Nicotine (Habitrol) 21 mg TD QDAY [facility] Risperidone (Risperdal) 0.25 mg PO BID [facility] Last Admin: 11/28/19 21:47 Dose: 0.25 mg Documented by: Sertraline HCl (Zoloft) 25 mg PO QDAY [facility] Trazodone HCl (Desyrel) 50 mg PO QHS [facility] Last Admin: 11/28/19 21:47 Dose: 50 mg Documented by: Ziprasidone (Geodon) 10 mg IM Q6H PRN PRN Reason: Agitation Results - Results Labs/Vitals: Laboratory Last Values WBC 2.9 K/mm3 (4.5-11.0) L 11/28/19 16:31 RBC 3.64 M/mm3 (3.65-5.03) L 11/28/19 16:31 Hgb 13.0 gm/dl (10.1-14.3) 11/28/19 16:31 Hct 38.7 % (30.3-42.9) 11/28/19 16:31 MCV 106 fl (79-97) H 11/28/19 16:31 MCH 36 pg (28-32) H 11/28/19 16:31 MCHC 34 % (30-34) 11/28/19 16:31 RDW 13.5 % (13.2-15.2) 11/28/19 16:31 Plt Count 184 K/mm3 (140-440) 11/28/19 16:31 Lymph % (Auto) 23.1 % (13.4-35.0) 11/28/19 16:31 [place] % (Auto) 6.3 % (0.0-7.3) 11/28/19 16:31 Eos % (Auto) 2.8 % (0.0-4.3) 11/28/19 16:31 Baso % (Auto) 0.5 % (0.0-1.8) 11/28/19 16:31 Lymph # 0.7 K/mm3 (1.2-5.4) L 11/28/19 16:31 [place] # 0.2 K/mm3 (0.0-0.8) 11/28/19 16:31 Eos # 0.1 K/mm3 (0.0-0.4) 11/28/19 16:31 Baso # 0.0 K/mm3 (0.0-0.1) 11/28/19 16:31 Seg Neutrophils % 67.3 % (40.0-70.0) 11/28/19 16:31 Seg Neutrophils # 2.0 K/mm3 (1.8-7.7) 11/28/19 16:31 Sodium 141 mmol/L (137-145) 11/28/19 16:31 Potassium 3.8 mmol/L (3.6-5.0) 11/28/19 16:31 Chloride 102.8 mmol/L (98-107) 11/28/19 16:31 Carbon Dioxide 26 mmol/L (22-30) 11/28/19 16:31 Anion Gap 16 mmol/L 11/28/19 16:31 BUN 9 mg/dL (7-17) 11/28/19 16:31 Creatinine 0.9 mg/dL (0.7-1.2) 11/28/19 16:31 Estimated GFR > 60 ml/min 11/28/19 16:31 BUN/Creatinine Ratio 10 % 11/28/19 16:31 Glucose 123 mg/dL (65-100) H 11/28/19 16:31 POC Glucose 89 (70-105) 11/28/19 20:15 Hemoglobin A1c 4.6 % (4-6) 11/28/19 16:31 Calcium 9.7 mg/dL (8.4-10.2) 11/28/19 16:31 Total Bilirubin 0.50 mg/dL (0.1-1.2) 11/28/19 16:31 AST 24 units/L (5-40) 11/28/19 16:31 ALT 14 units/L (7-56) 11/28/19 16:31 Alkaline Phosphatase 59 units/L (35-129) 11/28/19 16:31 Total Protein 7.6 g/dL (6.3-8.2) 11/28/19 16:31 Albumin 4.5 g/dL (3.9-5) 11/28/19 16:31 Albumin/Globulin Ratio 1.5 % 11/28/19 16:31 Triglycerides 61 mg/dL (2-149) 11/28/19 16:31 Cholesterol 214 mg/dL (50-199) H 11/28/19 16:31 LDL Cholesterol Direct 103 mg/dL (50-130) 11/28/19 16:31 HDL Cholesterol 100 mg/dL (40-59) H 11/28/19 16:31 Cholesterol/HDL Ratio 2.14 % 11/28/19 16:31 TSH 0.757 mlU/mL (0.270-4.200) 11/28/19 16:31 Last Vital Signs Temp 98.5 F 11/28/19 19:33 Pulse 57 L 11/28/19 19:33 Resp 18 11/28/19 19:33 BP 93/62 11/28/19 19:33 Pulse Ox 98 11/28/19 19:33 Physical Examination - Constitutional Vitals: Vital Signs Temp Pulse Resp BP Pulse Ox 98.5 F 57 L 18 93/62 98 11/28/19 19:33 11/28/19 19:33 11/28/19 19:33 11/28/19 19:33 11/28/19 19:33 Temperature -Last 24 Hours Temperature 98.5 F Temperature 97.9 F Mental Status Exam - Vital signs Last Vital Signs Temp 98.5 F 11/28/19 19:33 Pulse 57 L 11/28/19 19:33 Resp 18 11/28/19 19:33 BP 93/62 11/28/19 19:33 Pulse Ox 98 11/28/19 19:33 Physician Certification - Certification Statement Physician Certification Statement: This is an acknowledgement statement that ARACELI HORTA is a 64 year old F who requires inpatient psychiatric admission for treatment which could reasonably be expected to improve the patient's condition for Estimated period of time patient will need to remain in the hospital: [ ] Plan for post-hospital care: [ ]
[2019-11-29] MEDS: risperiDONE 0.25 MG TAB PO SCH ×2 (09:30→21:18)
[2019-11-29] MEDS: SERTRALINE 25 MG TAB PO SCH (09:31)
[2019-11-29] MEDS: NICOTINE 21 MG/24 HR PATCH TD SCH (09:31)
[2019-11-29] MEDS: HYDROCORTISONE 1% CREAM 28.4GM TP PRN (10:55)
[2019-11-29] MEDS: traZODone 50 MG TAB PO SCH (21:18)
[2019-11-29] MEDS ORDERED: traMADol 50 MG TAB PO PRN (22:09)
--- NOTE | 2019-11-29 22:09 | Consultation ---
History of Present Illness - Reason for Consult Consult date: 11/29/19 Medical management Requesting physician: NANI MCFARLAND - History of Present Illness Andree Mederos is a 64y/o female who states she was admitted to the [facility] floor for "depression and anxiety." During my interview with the patient, she is lying in bed. She is asleep. She easily arouses. She is oriented x 3. The patient makes fair eye contact. She is tearful at times during the interview. She verbalizes being "depressed." She also verbalizes being "suicidal with a plan to take pills." The patient says she "hears things but think they are in my mind." She says "it's hard to explain." The patient states she's had "two suicidal attempts" in the past. She says she's been admitted for psych related conditions "quite a few times." She says the last time she saw a psychiatrist was "last year." She says she was diagnosed with "bipolar disorder." The patient verbalized having "constant mood swings." She describes them as "up one minute, angry the next and then rock bottom." She says she takes "zoloft and trazodone." The patient also admits to using "crack a few days ago." She states she drinks alcohol "occasionally." She smokes "a pack of cigarets a week." PAST PSYCHIATRIC HISTORY: Diagnoses: Bipolar Suicide attempts or Self-harm behavior: twice Prior psychiatric hospitalizations: "quite a few times" Substance Abuse history: Crack, nicotine Previous psychiatric medications tried: Zoloft and Trazodone Outpatient treatment: Not at the present PAST MEDICAL HISTORY: None reported Family Psychiatric History: None reported or documented SOCIAL HISTORY Current living status: Homeless, was living with aunt Employment status: Retired Highest level of education: Some college Marital status: Legal history: Denies History of abuse: Crack REVIEW OF SYSTEMS Constitutional: Negative for weight loss ENT: Negative for stridor Respiratory: Negative for cough or hemoptysis All other systems reviewed and are negative Medications and Allergies Allergies Allergy/AdvReac Type Severity Reaction Status Date / Time No Known Allergies Allergy Verified 01/30/18 17:17 Home Medications Medication Instructions Recorded Confirmed Last Taken Type Baclofen [Lioresal] 5 mg PO TID #24 tab 01/22/17 11/29/19 Unknown Rx Diclofenac Potassium 50 mg PO DAILY #30 tablet 01/22/17 11/29/19 Unknown Rx Promethazine /Codeine 5 ml PO Q6H PRN #60 ml 01/22/17 11/29/19 Unknown Rx [Phenergan/Codeine 6.25-10 mg/5Ml] traMADoL [Ultram] 50 mg PO Q6HR PRN #24 tablet 01/22/17 11/29/19 Unknown Rx Sertraline [Zoloft] 25 mg PO QDAY 30 Days #30 tab 06/12/17 11/29/19 Unknown Rx Naproxen [Naprosyn] 500 mg PO BID #14 tablet 06/03/19 11/29/19 Unknown Rx guaiFENesin [Robitussin] 5 ml PO TID PRN #100 ml 06/03/19 11/29/19 Unknown Rx Active Meds: Active Medications Hydrocortisone Acetate (Hydrocortisone Cr) 1 applic TP Q8H PRN PRN Reason: Skin Irritation Last Admin: 11/29/19 10:55 Dose: 1 applic Documented by: Nicotine (Habitrol) 21 mg TD QDAY [facility] Last Admin: 11/29/19 09:31 Dose: 21 mg Documented by: Risperidone (Risperdal) 0.5 mg PO BID [facility] Last Admin: 11/29/19 21:18 Dose: 0.5 mg Documented by: Sertraline HCl (Zoloft) 25 mg PO QDAY [facility] Last Admin: 11/29/19 09:31 Dose: 25 mg Documented by: Trazodone HCl (Desyrel) 50 mg PO QHS [facility] Last Admin: 11/29/19 21:18 Dose: 50 mg Documented by: Ziprasidone (Geodon) 10 mg IM Q6H PRN PRN Reason: Agitation Exam - Constitutional Vitals: Temp Pulse Resp BP Pulse Ox 97.8 F 85 18 91/60 98 11/29/19 19:08 11/29/19 19:08 11/29/19 19:08 11/29/19 19:08 11/29/19 19:08 General appearance: Present: no acute distress, well-nourished - EENT Eyes: Present: PERRL ENT: hearing intact, clear oral mucosa - Neck Neck: Present: supple, normal ROM - Respiratory Respiratory effort: normal Respiratory: bilateral: CTA - Cardiovascular Heart rate: 78 Heart Sounds: Present: S1 & S2. Absent: rub, click - Extremities Extremities: pulses symmetrical, No edema Peripheral Pulses: within normal limits - Abdominal General gastrointestinal: Present: soft, non-tender, non-distended, normal bowel sounds Female genitourinary: Present: normal - Integumentary Integumentary: Present: clear, warm, dry - Musculoskeletal Musculoskeletal: gait normal, strength equal bilaterally - Psychiatric Psychiatric: appropriate mood/affect, intact judgment & insight - Neurologic Neurologic: CNII-XII intact, moves all extremities - Allied Health Allied health notes reviewed: nursing, case management Results - Labs CBC & Chem 7: 11/29/19 23:02 11/29/19 23:02 Assessment and Plan - Patient Problems (1) Depression Current Visit: No Status: Chronic Plan to address problem: Cont antidepressants (2) Cocaine abuse Current Visit: No Status: Acute Plan to address problem: Counselled (3) Arthritis Current Visit: Yes Status: Acute Plan to address problem: Cont Naproxen prn
[2019-11-29] MEDS ORDERED: SODIUM CHLORIDE 0.9% 1000 ML 1,000 ML IV SCH (22:30)
[2019-11-29 23:48] LABS: Basophils % (Auto) 0.3 % (0.0-1.8); Eosinophils # (Auto) 0.1 K/mm3 (0.0-0.4); Eosinophils % (Auto) 2.8 % (0.0-4.3); Hematocrit 32.8 % (30.3-42.9); Hemoglobin 11.1 gm/dl (10.1-14.3); Lymphocytes # (Auto) 1.1 K/mm3 (1.2-5.4); Mean Corpuscular HGB Conc 34 % (30-34); Mean Corpuscular Volume 106 fl (79-97); Monocytes # (Auto) 0.3 K/mm3 (0.0-0.8); Monocytes % (Auto) 9.3 % (0.0-7.3); Platelet Count 149 K/mm3 (140-440); Red Blood Count 3.09 M/mm3 (3.65-5.03); Red Cell Distribution Width 13.2 % (13.2-15.2)
[2019-11-30 00:14] LABS: Alanine Aminotransferase 7 units/L (7-56); Albumin 3.6 g/dL (3.9-5); BUN/Creatinine Ratio 42; Blood Urea Nitrogen 25 mg/dL (7-17); Calcium 9.3 mg/dL (8.4-10.2); Hemolysis Index 8
--- NOTE | 2019-11-30 08:17 | Progress Note ---
Subjective Date of service: 11/30/19 Principal diagnosis: Major Depressive Disorder with Psychotic Features Subjective Comment: The patient's medical record was reviewed and the patient's progress was discussed with the nursing staff. During my interview with the patient this morning, she is lying in bed asleep. She arouses easily. She is oriented x 3. She makes fair eye contact. She says her night has been "up and down." She says she feels "depressed and worthless." When asked about SI/HI, the patient states, "I still have thoughts of not wanting to live, but I feel better being on the pills." She denies any hallucinations during the interview, but states "last night I did, but not now." She described them as "voices in my head." The patient was unable to tell what the voices where saying to her. She says her appetite is "good." Reason for continued inpatient treatment: The patient continues to have severe depression, hallucinations and passive thoughts of dying. REVIEW OF SYSTEMS Constitutional: Negative for weight loss ENT: Negative for stridor Respiratory: Negative for cough or hemoptysis All other systems reviewed and are negative MENTAL STATUS EXAMINATION General Appearance: Dressed appropriately Behavior: Calm and cooperative. Fair eye contact Mood: "Depressed and worthless" Affect: Congruent with stated mood Speech: Normal rate and tone Thought Process: Goal oriented Thought Content: Suicidal Ideation: Yes Homicidal Ideation: Denies Hallucinations: Denies at present, but last night Delusions: None elicited Insight and Judgment: Limited Memory/Cognition: Limited Assessment Bipolar Disorder, Severe, Current Episode Depressed w/Psychotic Features Treatment Plan Patient will be admitted for inpatient psychiatric evaluation, medication adjustment and close monitoring The patient's behavior, mood, sleep and appetite will be closely monitored. Patient will be enrolled in individual and group therapeutic sessions and encouraged to attend. Patient will be provided with a safe and structured environment. Patient's physical health needs will be addressed by the Hospitalist. Hospitalist Consulted Labs including CBC, CMP, Lipid profile and Hemoglobin A1C ordered Social Assessment will be completed and the Computer Education Teacher will work with patient and family to ensure a suitable and safe disposition Medication adjustment will be made as clinically indicated Usual Wellness Hoahaoism/Preservation: Increased Risperidone 1mg po BID Depakote DR 125mg po BID The patient agreed on the treatment plan, understood the risk, benefit, alternative treatment, potential consequence of no treatment, and gave informed consent. Estimated period of time patient will need to remain in the hospital: [6] Plan for post-hospital care: [Outpatient] Medications and Allergies Allergies Allergy/AdvReac Type Severity Reaction Status Date / Time No Known Allergies Allergy Verified 01/30/18 17:17 Home Medications Medication Instructions Recorded Confirmed Last Taken Type Baclofen [Lioresal] 5 mg PO TID #24 tab 01/22/17 11/29/19 Unknown Rx Diclofenac Potassium 50 mg PO DAILY #30 tablet 01/22/17 11/29/19 Unknown Rx Promethazine /Codeine 5 ml PO Q6H PRN #60 ml 01/22/17 11/29/19 Unknown Rx [Phenergan/Codeine 6.25-10 mg/5Ml] traMADoL [Ultram] 50 mg PO Q6HR PRN #24 tablet 01/22/17 11/29/19 Unknown Rx Sertraline [Zoloft] 25 mg PO QDAY 30 Days #30 tab 06/12/17 11/29/19 Unknown Rx Naproxen [Naprosyn] 500 mg PO BID #14 tablet 06/03/19 11/29/19 Unknown Rx guaiFENesin [Robitussin] 5 ml PO TID PRN #100 ml 06/03/19 11/29/19 Unknown Rx Active Meds: Active Medications Baclofen (Lioresal) 5 mg PO TID [facility] Diclofenac Sodium (Voltaren) 50 mg PO DAILY [facility] Hydrocortisone Acetate (Hydrocortisone Cr) 1 applic TP Q8H PRN PRN Reason: Skin Irritation Last Admin: 11/29/19 10:55 Dose: 1 applic Documented by: Nicotine (Habitrol) 21 mg TD QDAY [facility] Last Admin: 11/29/19 09:31 Dose: 21 mg Documented by: Risperidone (Risperdal) 0.5 mg PO BID [facility] Last Admin: 11/29/19 21:18 Dose: 0.5 mg Documented by: Sertraline HCl (Zoloft) 25 mg PO QDAY [facility] Last Admin: 11/29/19 09:31 Dose: 25 mg Documented by: Tramadol HCl (Ultram) 50 mg PO Q6HR PRN PRN Reason: Pain, Moderate (4-6) Trazodone HCl (Desyrel) 50 mg PO QHS [facility] Last Admin: 11/29/19 21:18 Dose: 50 mg Documented by: Ziprasidone (Geodon) 10 mg IM Q6H PRN PRN Reason: Agitation Results - Results Labs/Vitals: Laboratory Last Values WBC 3.5 K/mm3 (4.5-11.0) L 11/29/19 23: RBC 3.09 M/mm3 (3.65-5.03) L 11/29/19 23: Hgb 11.1 gm/dl (10.1-14.3) 11/29/19 23: Hct 32.8 % (30.3-42.9) 11/29/19 23: MCV 106 fl (79-97) H 11/29/19 23: MCH 36 pg (28-32) H 11/29/19: MCHC 34 % (30-34) 11/29/19 23: RDW 13.2 % (13.2-15.2) 11/29/19 23: Plt Count 149 K/mm3 (140-440) 11/29/19 23: Lymph % (Auto) 32.0 % (13.4-35.0) 11/29/19 23: [place] % (Auto) 9.3 % (0.0-7.3) H 11/29/19: Eos % (Auto) 2.8 % (0.0-4.3) 11/29/19 23: Baso % (Auto) 0.3 % (0.0-1.8) 11/29/19 23: Lymph # 1.1 K/mm3 (1.2-5.4) L 11/29/19 23: [place] # 0.3 K/mm3 (0.0-0.8) 11/29/19 23: Eos # 0.1 K/mm3 (0.0-0.4) 11/29/19: Baso # 0.0 K/mm3 (0.0-0.1) 11/29/19 23: Seg Neutrophils % 55.6 % (40.0-70.0) 11/29/19 23: Seg Neutrophils # 2.0 K/mm3 (1.8-7.7) 11/29/19 23: Sodium 140 mmol/L (137-145) 11/29/19 23:02 Potassium 3.9 mmol/L (3.6-5.0) 11/29/19 23:02 Chloride 100.1 mmol/L (98-107) 11/29/19 23:02 Carbon Dioxide 28 mmol/L (22-30) 11/29/19 23:02 Anion Gap 16 mmol/L 11/29/19 23:02 BUN 25 mg/dL (7-17) H 11/29/19 23:02 Creatinine 0.6 mg/dL (0.7-1.2) L 11/29/19 23:02 Estimated GFR > 60 ml/min 11/29/19 23:02 BUN/Creatinine Ratio 42 % 11/29/19 23:02 Glucose 112 mg/dL (65-100) H 11/29/19 23:02 POC Glucose 89 (70-105) 11/28/19 20:15 Hemoglobin A1c 4.6 % (4-6) 11/28/19 16:31 Calcium 9.3 mg/dL (8.4-10.2) 11/29/19 23:02 Total Bilirubin < 0.20 mg/dL (0.1-1.2) 11/29/19 23:02 AST 15 units/L (5-40) 11/29/19 23:02 ALT 7 units/L (7-56) 11/29/19 23:02 Alkaline Phosphatase 79 units/L (35-129) 11/29/19 23:02 Total Protein 6.5 g/dL (6.3-8.2) 11/29/19 23:02 Albumin 3.6 g/dL (3.9-5) L 11/29/19 23:02 Albumin/Globulin Ratio 1.2 % 11/29/19 23:02 Triglycerides 61 mg/dL (2-149) 11/28/19 16:31 Cholesterol 214 mg/dL (50-199) H 11/28/19 16:31 LDL Cholesterol Direct 103 mg/dL (50-130) 11/28/19 16:31 HDL Cholesterol 100 mg/dL (40-59) H 11/28/19 16:31 Cholesterol/HDL Ratio 2.14 % 11/28/19 16:31 TSH 0.757 mlU/mL (0.270-4.200) 11/28/19 16:31 Last Vital Signs Temp 97.8 F 11/29/19 19:08 Pulse 85 11/29/19 19:08 Resp 18 11/29/19 19:08 BP 91/60 11/29/19 19:08 Pulse Ox 98 11/29/19 19:08
[2019-11-30] MEDS: BACLOFEN 10 MG TAB PO SCH ×3 (08:45→21:31)
[2019-11-30] MEDS ORDERED: SERTRALINE 25 MG TAB PO SCH (10:00)
[2019-11-30] MEDS ORDERED: DICLOFENAC POTASSIUM 50 MG PO SCH (10:00)
[2019-11-30] MEDS: risperiDONE 1 MG TAB PO SCH ×2 (10:21→21:31)
[2019-11-30] MEDS: NICOTINE 21 MG/24 HR PATCH TD SCH (10:21)
[2019-11-30] MEDS: DIVALPROEX DR 125 MG TAB PO SCH ×2 (10:21→21:30)
[2019-11-30] MEDS: DICLOFENAC EC 25 MG TAB PO SCH (10:22)
[2019-11-30] MEDS: SERTRALINE 25 MG TAB PO SCH (10:23)
[2019-11-30] MEDS: HYDROCORTISONE 1% CREAM 28.4GM TP PRN (10:23)
[2019-11-30] MEDS: traZODone 50 MG TAB PO SCH (21:30)
--- NOTE | 2019-12-01 07:53 | Progress Note ---
Subjective Date of service: 12/01/19 Principal diagnosis: Major Depressive Disorder with Psychotic Features Subjective Comment: The patient's medical record was reviewed and the patient's progress was discussed with the nursing staff. The nurse note states the patient denies SI and HI but reports "not feeling myself, I'm half and half". pt is tearful and states I don't feel good about myself. During my interview with the patient this morning, she is lying in bed asleep. She arouses easily. She is oriented x 3. She makes fair eye contact. She is calm and cooperative. She is polite. The patient states, "I'm tired. I didn't sleep well because I got a pinched nerve in my neck." She denies SI/HI, but states, "I feel like I don't want to live, but I don't think I'll actually do anything to myself." The patient also verbalized being "a little depressed." She denies hallucinations of any kind. She says her appetite has been "good." She thanks me at the end of the interview. Reason for continued inpatient treatment: The patient continues to have severe depression, and passive thoughts of dying. REVIEW OF SYSTEMS Constitutional: Negative for weight loss ENT: Negative for stridor Respiratory: Negative for cough or hemoptysis All other systems reviewed and are negative MENTAL STATUS EXAMINATION General Appearance: Dressed appropriately Behavior: Calm and cooperative. Fair eye contact Mood: "Depressed" Affect: Congruent with stated mood Speech: Normal rate and tone Thought Process: Goal oriented Thought Content: Suicidal Ideation: Yes, passive Homicidal Ideation: Denies Hallucinations: Denies Delusions: None elicited Insight and Judgment: Limited Memory/Cognition: Limited Assessment Bipolar Disorder, Severe, Current Episode Depressed w/Psychotic Features Treatment Plan Patient will be admitted for inpatient psychiatric evaluation, medication adjustment and close monitoring The patient's behavior, mood, sleep and appetite will be closely monitored. Patient will be enrolled in individual and group therapeutic sessions and encouraged to attend. Patient will be provided with a safe and structured environment. Patient's physical health needs will be addressed by the Hospitalist. Hospitalist Consulted Labs including CBC, CMP, Lipid profile and Hemoglobin A1C ordered Valproic acid level 12/05/19 Social Assessment will be completed and the Police Academy Instructor will work with patient and family to ensure a suitable and safe disposition Medication adjustment will be made as clinically indicated Usual Wellness Catholic/Preservation: Increased Depakote DR 250mg po BID The patient agreed on the treatment plan, understood the risk, benefit, al ternative treatment, potential consequence of no treatment, and gave informed consent. Estimated period of time patient will need to remain in the hospital: [6] Plan for post-hospital care: [Outpatient] Medications and Allergies Allergies Allergy/AdvReac Type Severity Reaction Status Date / Time No Known Allergies Allergy Verified 01/30/18 17:17 Home Medications Medication Instructions Recorded Confirmed Last Taken Type Baclofen [Lioresal] 5 mg PO TID #24 tab 01/22/17 11/29/19 Unknown Rx Diclofenac Potassium 50 mg PO DAILY #30 tablet 01/22/17 11/29/19 Unknown Rx Promethazine /Codeine 5 ml PO Q6H PRN #60 ml 01/22/17 11/29/19 Unknown Rx [Phenergan/Codeine 6.25-10 mg/5Ml] traMADoL [Ultram] 50 mg PO Q6HR PRN #24 tablet 01/22/17 11/29/19 Unknown Rx Sertraline [Zoloft] 25 mg PO QDAY 30 Days #30 tab 06/12/17 11/29/19 Unknown Rx Naproxen [Naprosyn] 500 mg PO BID #14 tablet 06/03/19 11/29/19 Unknown Rx guaiFENesin [Robitussin] 5 ml PO TID PRN #100 ml 06/03/19 11/29/19 Unknown Rx Active Meds: Active Medications Baclofen (Lioresal) 5 mg PO TID [facility] Last Admin: 11/30/19 21:31 Dose: 5 mg Documented by: Diclofenac Sodium (Voltaren) 50 mg PO DAILY [facility] Last Admin: 11/30/19 10:22 Dose: 50 mg Documented by: Divalproex Sodium (Depakote Dr) 125 mg PO BID [facility] Last Admin: 11/30/19 21:30 Dose: 125 mg Documented by: Hydrocortisone Acetate (Hydrocortisone Cr) 1 applic TP Q8H PRN PRN Reason: Skin Irritation Last Admin: 11/30/19 10:23 Dose: 1 applic Documented by: Nicotine (Habitrol) 21 mg TD QDAY [facility] Last Admin: 11/30/19 10:21 Dose: 21 mg Documented by: Risperidone (Risperdal) 1 mg PO BID [facility] Last Admin: 11/30/19 21:31 Dose: 1 mg Documented by: Sertraline HCl (Zoloft) 25 mg PO QDAY [facility] Last Admin: 11/30/19 10:23 Dose: 25 mg Documented by: Tramadol HCl (Ultram) 50 mg PO Q6HR PRN PRN Reason: Pain, Moderate (4-6) Trazodone HCl (Desyrel) 50 mg PO QHS [facility] Last Admin: 11/30/19 21:30 Dose: 50 mg Documented by: Ziprasidone (Geodon) 10 mg IM Q6H PRN PRN Reason: Agitation Results - Results Labs/Vitals: Laboratory Last Values WBC 3.5 K/mm3 (4.5-11.0) L 11/29/19 23: RBC 3.09 M/mm3 (3.65-5.03) L 11/29/19 23:02 Hgb 11.1 gm/dl (10.1-14.3) 11/29/19 23:02 Hct 32.8 % (30.3-42.9) 11/29/19 23:02 MCV 106 fl (79-97) H 11/29/19 23:02 MCH 36 pg (28-32) H 11/29/19 23:02 MCHC 34 % (30-34) 11/29/19 23:02 RDW 13.2 % (13.2-15.2) 11/29/19 23:02 Plt Count 149 K/mm3 (140-440) 11/29/19 23:02 Lymph % (Auto) 32.0 % (13.4-35.0) 11/29/19 23:02 [place] % (Auto) 9.3 % (0.0-7.3) H 11/29/19 23:02 Eos % (Auto) 2.8 % (0.0-4.3) 11/29/19 23:02 Baso % (Auto) 0.3 % (0.0-1.8) 11/29/19 23:02 Lymph # 1.1 K/mm3 (1.2-5.4) L 11/29/19 23:02 [place] # 0.3 K/mm3 (0.0-0.8) 11/29/19 23:02 Eos # 0.1 K/mm3 (0.0-0.4) 11/29/19 23:02 Baso # 0.0 K/mm3 (0.0-0.1) 11/29/19 23:02 Seg Neutrophils % 55.6 % (40.0-70.0) 11/29/19 23:02 Seg Neutrophils # 2.0 K/mm3 (1.8-7.7) 11/29/19 23:02 Sodium 140 mmol/L (137-145) 11/29/19 23:02 Potassium 3.9 mmol/L (3.6-5.0) 11/29/19 23:02 Chloride 100.1 mmol/L (98-107) 11/29/19 23:02 Carbon Dioxide 28 mmol/L (22-30) 11/29/19 23:02 Anion Gap 16 mmol/L 11/29/19 23:02 BUN 25 mg/dL (7-17) H 11/29/19 23:02 Creatinine 0.6 mg/dL (0.7-1.2) L 11/29/19 23:02 Estimated GFR > 60 ml/min 11/29/19 23:02 BUN/Creatinine Ratio 42 % 11/29/19 23:02 Glucose 112 mg/dL (65-100) H 11/29/19 23:02 POC Glucose 89 (70-105) 11/28/19 20:15 Hemoglobin A1c 4.6 % (4-6) 11/28/19 16:31 Calcium 9.3 mg/dL (8.4-10.2) 11/29/19 23:02 Total Bilirubin < 0.20 mg/dL (0.1-1.2) 11/29/19 23:02 AST 15 units/L (5-40) 11/29/19 23:02 ALT 7 units/L (7-56) 11/29/19 23:02 Alkaline Phosphatase 79 units/L (35-129) 11/29/19 23:02 Total Protein 6.5 g/dL (6.3-8.2) 11/29/19 23:02 Albumin 3.6 g/dL (3.9-5) L 11/29/19 23:02 Albumin/Globulin Ratio 1.2 % 11/29/19 23:02 Triglycerides 61 mg/dL (2-149) 11/28/19 16:31 Cholesterol 214 mg/dL (50-199) H 11/28/19 16:31 LDL Cholesterol Direct 103 mg/dL (50-130) 11/28/19 16:31 HDL Cholesterol 100 mg/dL (40-59) H 11/28/19 16:31 Cholesterol/HDL Ratio 2.14 % 11/28/19 16:31 TSH 0.757 mlU/mL (0.270-4.200) 11/28/19 16:31 Last Vital Signs Temp 98.5 F 11/30/19 19:33 Pulse 69 11/30/19 19:33 Resp 20 11/30/19 19:33 BP 97/60 11/30/19 19:33 Pulse Ox 96 11/30/19 19:33
[2019-12-01] MEDS ORDERED: DIVALPROEX DR 125 MG TAB PO SCH (07:54)
[2019-12-01] MEDS: risperiDONE 1 MG TAB PO SCH ×2 (11:23→21:06)
[2019-12-01] MEDS: DIVALPROEX DR 250 MG TAB PO SCH ×2 (11:23→21:06)
[2019-12-01] MEDS: BACLOFEN 10 MG TAB PO SCH ×3 (11:23→19:55)
[2019-12-01] MEDS: SERTRALINE 25 MG TAB PO SCH (11:24)
[2019-12-01] MEDS: NICOTINE 21 MG/24 HR PATCH TD SCH (11:24)
[2019-12-01] MEDS: HYDROCORTISONE 1% CREAM 28.4GM TP PRN (11:32)
[2019-12-01] MEDS: DICLOFENAC EC 25 MG TAB PO SCH (17:07)
[2019-12-01] MEDS: traZODone 50 MG TAB PO SCH (21:06)
--- NOTE | 2019-12-02 07:58 | Progress Note ---
Subjective Date of service: 12/02/19 Principal diagnosis: Major Depressive Disorder with Psychotic Features Subjective Comment: The patient's medical record was reviewed and the patient's progress was discussed with the nursing staff. The nurse note states the patient did not rest well during the night, presents as sleeping for 3hrs plus During my interview with the patient this morning, she is lying in bed asleep. She arouses easily. She is oriented x 3. She makes fair eye contact. She is calm and cooperative. The patient states she felt "terrible." She says, "I could not sleep last night. I'm so glad to see daylight." She says her mood has been "up and down." She then says, "I feel rosy depressed." When asking about thoughts of self harm, the patient thought long and hard, then replied, "I don't think so. I'm not trying to give up. I need to sort my thoughts out." She denies llamas ucinations of any kind. She says her appetite has been "okay." Reason for continued inpatient treatment: The patient continues to have severe depression, and appears to have passive thoughts of dying. REVIEW OF SYSTEMS Constitutional: Negative for weight loss ENT: Negative for stridor Respiratory: Negative for cough or hemoptysis All other systems reviewed and are negative MENTAL STATUS EXAMINATION General Appearance: Dressed appropriately Behavior: Calm and cooperative. Fair eye contact Mood: "Depressed" Affect: Congruent with stated mood Speech: Normal rate and tone Thought Process: Goal oriented Thought Content: Suicidal Ideation: Yes, passive Homicidal Ideation: Denies Hallucinations: Denies Delusions: None elicited Insight and Judgment: Limited Memory/Cognition: Limited Assessment Bipolar Disorder, Severe, Current Episode Depressed w/Psychotic Features Treatment Plan Patient will be admitted for inpatient psychiatric evaluation, medication adjustment and close monitoring The patient's behavior, mood, sleep and appetite will be closely monitored. Patient will be enrolled in individual and group therapeutic sessions and encouraged to attend. Patient will be provided with a safe and structured environment. Patient's physical health needs will be addressed by the Hospitalist. Hospitalist Consulted Labs including CBC, CMP, Lipid profile and Hemoglobin A1C ordered Valproic acid level 12/05/19 Social Assessment will be completed and the Diploma Maker will work with patient and family to ensure a suitable and safe disposition Medication adjustment will be made as clinically indicated Usual Wellness Nondenominational/Preservation: Started Melatonin 5mg po qhs prn insomnia The patient agreed on the treatment plan, understood the risk, benefit, a lternative treatment, potential consequence of no treatment, and gave informed consent. Estimated period of time patient will need to remain in the hospital: [5] Plan for post-hospital care: [Outpatient] Medications and Allergies Allergies Allergy/AdvReac Type Severity Reaction Status Date / Time No Known Allergies Allergy Verified 01/30/18 17:17 Home Medications Medication Instructions Recorded Confirmed Last Taken Type Baclofen [Lioresal] 5 mg PO TID #24 tab 01/22/17 11/29/19 Unknown Rx Diclofenac Potassium 50 mg PO DAILY #30 tablet 01/22/17 11/29/19 Unknown Rx Promethazine /Codeine 5 ml PO Q6H PRN #60 ml 01/22/17 11/29/19 Unknown Rx [Phenergan/Codeine 6.25-10 mg/5Ml] traMADoL [Ultram] 50 mg PO Q6HR PRN #24 tablet 01/22/17 11/29/19 Unknown Rx Sertraline [Zoloft] 25 mg PO QDAY 30 Days #30 tab 06/12/17 11/29/19 Unknown Rx Naproxen [Naprosyn] 500 mg PO BID #14 tablet 06/03/19 11/29/19 Unknown Rx guaiFENesin [Robitussin] 5 ml PO TID PRN #100 ml 06/03/19 11/29/19 Unknown Rx Active Meds: Active Medications Baclofen (Lioresal) 5 mg PO TID [facility] Last Admin: 12/01/19 19:55 Dose: 5 mg Documented by: Diclofenac Sodium (Voltaren) 50 mg PO DAILY [facility] Last Admin: 12/01/19 17:07 Dose: 50 mg Documented by: Divalproex Sodium (Depakote Dr) 250 mg PO BID [facility] Last Admin: 12/01/19 21:06 Dose: 250 mg Documented by: Hydrocortisone Acetate (Hydrocortisone Cr) 1 applic TP Q8H PRN PRN Reason: Skin Irritation Last Admin: 12/01/19 11:32 Dose: 1 applic Documented by: Nicotine (Habitrol) 21 mg TD QDAY [facility] Last Admin: 12/01/19 11:24 Dose: 21 mg Documented by: Risperidone (Risperdal) 1 mg PO BID [facility] Last Admin: 12/01/19 21:06 Dose: 1 mg Documented by: Sertraline HCl (Zoloft) 25 mg PO QDAY [facility] Last Admin: 12/01/19 11:24 Dose: 25 mg Documented by: Tramadol HCl (Ultram) 50 mg PO Q6HR PRN PRN Reason: Pain, Moderate (4-6) Trazodone HCl (Desyrel) 50 mg PO QHS [facility] Last Admin: 12/01/19 21:06 Dose: 50 mg Documented by: Ziprasidone (Geodon) 10 mg IM Q6H PRN PRN Reason: Agitation Results - Results Labs/Vitals: Laboratory Last Values WBC 3.5 K/mm3 (4.5-11.0) L 11/29/19 23: RBC 3.09 M/mm3 (3.65-5.03) L 11/29/19 23:02 Hgb 11.1 gm/dl (10.1-14.3) 11/29/19 23:02 Hct 32.8 % (30.3-42.9) 11/29/19 23:02 MCV 106 fl (79-97) H 11/29/19 23:02 MCH 36 pg (28-32) H 11/29/19 23:02 MCHC 34 % (30-34) 11/29/19 23:02 RDW 13.2 % (13.2-15.2) 11/29/19 23:02 Plt Count 149 K/mm3 (140-440) 11/29/19 23:02 Lymph % (Auto) 32.0 % (13.4-35.0) 11/29/19 23:02 [place] % (Auto) 9.3 % (0.0-7.3) H 11/29/19 23:02 Eos % (Auto) 2.8 % (0.0-4.3) 11/29/19 23:02 Baso % (Auto) 0.3 % (0.0-1.8) 11/29/19 23:02 Lymph # 1.1 K/mm3 (1.2-5.4) L 11/29/19 23:02 [place] # 0.3 K/mm3 (0.0-0.8) 11/29/19 23:02 Eos # 0.1 K/mm3 (0.0-0.4) 11/29/19 23:02 Baso # 0.0 K/mm3 (0.0-0.1) 11/29/19 23:02 Seg Neutrophils % 55.6 % (40.0-70.0) 11/29/19 23:02 Seg Neutrophils # 2.0 K/mm3 (1.8-7.7) 11/29/19 23:02 Sodium 140 mmol/L (137-145) 11/29/19 23:02 Potassium 3.9 mmol/L (3.6-5.0) 11/29/19 23:02 Chloride 100.1 mmol/L (98-107) 11/29/19 23:02 Carbon Dioxide 28 mmol/L (22-30) 11/29/19 23:02 Anion Gap 16 mmol/L 11/29/19 23:02 BUN 25 mg/dL (7-17) H 11/29/19 23:02 Creatinine 0.6 mg/dL (0.7-1.2) L 11/29/19 23:02 Estimated GFR > 60 ml/min 11/29/19 23:02 BUN/Creatinine Ratio 42 % 11/29/19 23:02 Glucose 112 mg/dL (65-100) H 11/29/19 23:02 POC Glucose 89 (70-105) 11/28/19 20:15 Hemoglobin A1c 4.6 % (4-6) 11/28/19 16:31 Calcium 9.3 mg/dL (8.4-10.2) 11/29/19 23:02 Total Bilirubin < 0.20 mg/dL (0.1-1.2) 11/29/19 23:02 AST 15 units/L (5-40) 11/29/19 23:02 ALT 7 units/L (7-56) 11/29/19 23:02 Alkaline Phosphatase 79 units/L (35-129) 11/29/19 23:02 Total Protein 6.5 g/dL (6.3-8.2) 11/29/19 23:02 Albumin 3.6 g/dL (3.9-5) L 11/29/19 23:02 Albumin/Globulin Ratio 1.2 % 11/29/19 23:02 Triglycerides 61 mg/dL (2-149) 05/24/20 16:31 Cholesterol 214 mg/dL (50-199) H 11/28/19 16:31 LDL Cholesterol Direct 103 mg/dL (50-130) 11/28/19 16:31 HDL Cholesterol 100 mg/dL (40-59) H 11/28/19 16:31 Cholesterol/HDL Ratio 2.14 % 11/28/19 16:31 TSH 0.757 mlU/mL (0.270-4.200) 11/28/19 16:31 Last Vital Signs Temp 98.1 F 12/01/19 22:00 Pulse 72 12/01/19 22:00 Resp 18 12/01/19 22:00 BP 107/62 12/01/19 22:00 Pulse Ox 98 12/01/19 22:00
[2019-12-02] MEDS: DICLOFENAC EC 25 MG TAB PO SCH (10:52)
[2019-12-02] MEDS: DIVALPROEX DR 250 MG TAB PO SCH ×2 (10:52→21:07)
[2019-12-02] MEDS: risperiDONE 1 MG TAB PO SCH ×2 (10:52→21:07)
[2019-12-02] MEDS: HYDROCORTISONE 1% CREAM 28.4GM TP PRN (10:53)
[2019-12-02] MEDS: NICOTINE 21 MG/24 HR PATCH TD SCH (10:55)
[2019-12-02] MEDS: SERTRALINE 25 MG TAB PO SCH (10:55)
[2019-12-02] MEDS: BACLOFEN 10 MG TAB PO SCH ×3 (11:08→21:07)
[2019-12-02] MEDS: traZODone 50 MG TAB PO SCH (21:07)
[2019-12-02] MEDS ORDERED: MELATONIN 5 MG TAB PO PRN (22:00)
--- NOTE | 2019-12-03 07:01 | Progress Note ---
Subjective Date of service: 12/03/19 Principal diagnosis: Major Depressive Disorder with Psychotic Features Subjective Comment: Per Psych Nurse: Pt. said sometimes she is sad and wondering how she will break up the huslia of depression. She woke late this morning stating that she did not sleep well last night. She participated in group activities and interacted with peers and staff. Psych Progress HPI In my interview with the patient this morning, the patient reports mood as getting better, slight improvement but persistent depression. Appetite is good. Sleep last night was terrible, endorses having nightmares. Patient denies current SI but endorses passive suicidal thoughts, HI, and also denies AVH and contracts to ask the staff for help if any of these symptoms increase. Reason for continuing inpatient treatment: Medication changes and adjustment, valproate levels check tomorrow. The patient continues to have severe depression, and appears to have passive thoughts of dying. MENTAL STATUS EXAMINATION General Appearance and Behavior: Age appropriate, good hygiene, wearing appropriate clothes, good eye contact, cooperative with questioning and polite Cooperation: Participating/engaged Psychomotor Behavior: unremarkable and within normal limits Mood: Depressed Affect and affective range: Congruent with mood Thought Process: Fluent/Logical Thought Content: Within reality,hopelessness Speech: Normal volume, Regular rate and rhythm Intellectual Functioning: Average Suicidal Ideation: Passive Homicidal Ideation: Denies HI Impulse Control: Unimpaired Insight and Judgment: Normal insight and judgment Memory: Normal Attention: Normal Orientation: Alert, oriented Treatment Plan: Increase Trazodone to 100mg, melatonin to JHON from PRN. will re- evaluation sleep patter tomorow Due to the psychiatric conditions and treatment listed in the Assessment and Plan - the patient requires continued hospitalization. Will continue inpatient treatment to allow for medication adjustment and monitoring. Will continue q15 min safety checks. Will encourage the use of environmental modifications and non-pharmacologic approaches for the management of behavioral and psychological symptoms. Will continue current psych medications Monitor for medication side effects. Most recent medication adjustments: The patient will continue on medications for physical illnesses, and Hospitalist will closely monitor these Continue intensive physical and occupational therapies. Monitor patient's mood, sleep, appetite, and behavior closely. Encourage patient to participate in individual and group therapeutic sessions on the guillermo. Will provide a safe and therapeutic environment for patient. The patient agreed on the treatment plan, understood the risk, benefit, alternative treatment, potential consequence of no treatment, and gave informed consent. Estimated period of time patient will need to remain in the hospital: [4] Plan for post-hospital care: [Outpatient] Medications and Allergies Allergies Allergy/AdvReac Type Severity Reaction Status Date / Time No Known Allergies Allergy Verified 01/30/18 17:17 Home Medications Medication Instructions Recorded Confirmed Last Taken Type Baclofen [Lioresal] 5 mg PO TID #24 tab 01/22/17 11/29/19 Unknown Rx Diclofenac Potassium 50 mg PO DAILY #30 tablet 01/22/17 11/29/19 Unknown Rx Promethazine /Codeine 5 ml PO Q6H PRN #60 ml 01/22/17 11/29/19 Unknown Rx [Phenergan/Codeine 6.25-10 mg/5Ml] traMADoL [Ultram] 50 mg PO Q6HR PRN #24 tablet 01/22/17 11/29/19 Unknown Rx Sertraline [Zoloft] 25 mg PO QDAY 30 Days #30 tab 06/12/17 11/29/19 Unknown Rx Naproxen [Naprosyn] 500 mg PO BID #14 tablet 06/03/19 11/29/19 Unknown Rx guaiFENesin [Robitussin] 5 ml PO TID PRN #100 ml 06/03/19 11/29/19 Unknown Rx Active Meds: Active Medications Baclofen (Lioresal) 5 mg PO TID [facility] Last Admin: 12/02/19 21:07 Dose: 5 mg Documented by: Diclofenac Sodium (Voltaren) 50 mg PO DAILY [facility] Last Admin: 12/02/19 10:52 Dose: 50 mg Documented by: Divalproex Sodium (Depakote Dr) 250 mg PO BID [facility] Last Admin: 12/02/19 21:07 Dose: 250 mg Documented by: Hydrocortisone Acetate (Hydrocortisone Cr) 1 applic TP Q8H PRN PRN Reason: Skin Irritation Last Admin: 12/02/19 10:53 Dose: 1 applic Documented by: Melatonin (Melatonin) 5 mg PO QHS PRN PRN Reason: Sleep Nicotine (Habitrol) 21 mg TD QDAY [facility] Last Admin: 12/02/19 10:55 Dose: 21 mg Documented by: Risperidone (Risperdal) 1 mg PO BID [facility] Last Admin: 12/02/19 21:07 Dose: 1 mg Documented by: Sertraline HCl (Zoloft) 25 mg PO QDAY [facility] Last Admin: 12/02/19 10:55 Dose: 25 mg Documented by: Tramadol HCl (Ultram) 50 mg PO Q6HR PRN PRN Reason: Pain, Moderate (4-6) Trazodone HCl (Desyrel) 50 mg PO QHS [facility] Last Admin: 12/02/19 21:07 Dose: 50 mg Documented by: Ziprasidone (Geodon) 10 mg IM Q6H PRN PRN Reason: Agitation Results - Results Labs/Vitals: Laboratory Last Values WBC 3.5 K/mm3 (4.5-11.0) L 11/29/19 23: RBC 3.09 M/mm3 (3.65-5.03) L 11/29/19 23:02 Hgb 11.1 gm/dl (10.1-14.3) 11/29/19 23:02 Hct 32.8 % (30.3-42.9) 11/29/19 23:02 MCV 106 fl (79-97) H 11/29/19 23:02 MCH 36 pg (28-32) H 11/29/19 23:02 MCHC 34 % (30-34) 11/29/19 23:02 RDW 13.2 % (13.2-15.2) 11/29/19 23:02 Plt Count 149 K/mm3 (140-440) 11/29/19 23:02 Lymph % (Auto) 32.0 % (13.4-35.0) 11/29/19 23:02 [place] % (Auto) 9.3 % (0.0-7.3) H 11/29/19 23:02 Eos % (Auto) 2.8 % (0.0-4.3) 11/29/19 23:02 Baso % (Auto) 0.3 % (0.0-1.8) 11/29/19 23:02 Lymph # 1.1 K/mm3 (1.2-5.4) L 11/29/19 23:02 [place] # 0.3 K/mm3 (0.0-0.8) 11/29/19 23:02 Eos # 0.1 K/mm3 (0.0-0.4) 11/29/19 23:02 Baso # 0.0 K/mm3 (0.0-0.1) 11/29/19 23:02 Seg Neutrophils % 55.6 % (40.0-70.0) 11/29/19 23:02 Seg Neutrophils # 2.0 K/mm3 (1.8-7.7) 11/29/19 23:02 Sodium 140 mmol/L (137-145) 11/29/19 23:02 Potassium 3.9 mmol/L (3.6-5.0) 11/29/19 23:02 Chloride 100.1 mmol/L (98-107) 11/29/19 23:02 Carbon Dioxide 28 mmol/L (22-30) 11/29/19 23:02 Anion Gap 16 mmol/L 11/29/19 23:02 BUN 25 mg/dL (7-17) H 11/29/19 23:02 Creatinine 0.6 mg/dL (0.7-1.2) L 11/29/19 23:02 Estimated GFR > 60 ml/min 11/29/19 23:02 BUN/Creatinine Ratio 42 % 11/29/19 23:02 Glucose 112 mg/dL (65-100) H 11/29/19 23:02 POC Glucose 89 (70-105) 11/28/19 20:15 Hemoglobin A1c 4.6 % (4-6) 11/28/19: Calcium 9.3 mg/dL (8.4-10.2) 11/29/19 23:02 Total Bilirubin < 0.20 mg/dL (0.1-1.2) 11/29/19 23:02 AST 15 units/L (5-40) 11/29/19 23:02 ALT 7 units/L (7-56) 11/29/19 23:02 Alkaline Phosphatase 79 units/L (35-129) 11/29/19 23:02 Total Protein 6.5 g/dL (6.3-8.2) 11/29/19 23:02 Albumin 3.6 g/dL (3.9-5) L 11/29/19 23:02 Albumin/Globulin Ratio 1.2 % 11/29/19 23:02 Triglycerides 61 mg/dL (2-149) 11/28/19 16:31 Cholesterol 214 mg/dL (50-199) H 11/28/19 16:31 LDL Cholesterol Direct 103 mg/dL (50-130) 11/28/19 16:31 HDL Cholesterol 100 mg/dL (40-59) H 11/28/19 16:31 Cholesterol/HDL Ratio 2.14 % 11/28/19 16:31 TSH 0.757 mlU/mL (0.270-4.200) 11/28/19 16:31 Last Vital Signs Temp 98.4 F 12/02/19 19:00 Pulse 74 12/02/19 19:11 Resp 18 12/02/19 19:00 BP 119/71 12/02/19 19:11 Pulse Ox 98 12/02/19 19:11
[2019-12-03] MEDS: BACLOFEN 10 MG TAB PO SCH ×3 (08:20→21:54)
[2019-12-03] MEDS: DICLOFENAC EC 25 MG TAB PO SCH (09:24)
[2019-12-03] MEDS: SERTRALINE 25 MG TAB PO SCH (09:24)
[2019-12-03] MEDS: DIVALPROEX DR 250 MG TAB PO SCH ×2 (09:24→21:54)
[2019-12-03] MEDS: NICOTINE 21 MG/24 HR PATCH TD SCH (09:25)
[2019-12-03] MEDS: risperiDONE 1 MG TAB PO SCH ×2 (09:27→21:56)
[2019-12-03] MEDS: HYDROCORTISONE 1% CREAM 28.4GM TP PRN ×2 (14:19→21:51)
[2019-12-03] MEDS: PANTOPRAZOLE 40 MG TAB PO SCH (17:45)
[2019-12-03] MEDS: MELATONIN 5 MG TAB PO SCH (21:53)
[2019-12-03] MEDS: traZODone 50 MG TAB PO SCH (21:55)
--- NOTE | 2019-12-04 06:58 | Progress Note ---
Subjective Date of service: 12/04/19 Principal diagnosis: Major Depressive Disorder with Psychotic Features Subjective Comment: Per Psych Nurse: Patient presents as calm and she has warm interactions with staff and peers. she denies si/hi/ah/vh. She watched tv and worked on crafts at times. Patient was medication compliant. Will continue to monitor patient for safety. Psych Progress HPI Patient seen and interviewed at bedside this a.m., she reports sleeping and feeling much more better compared to yesterday most especially with the recent medication changes. Patient reports persistent nightmares about someone that she does not know otherwise has no other complaints with sleep. Patient reports mood swings states she cried twice yesterday especially after telling me that she was not having any suicidal thoughts because she did not know if she had told me the truth or not. Patient reports that her appetite has been very good, and she is trying to actually slow down her meal consumption Reason for continuing inpatient treatment: Persistent depressed mood with suicidal ideation. Medication changes and adjustment made yesterday., valproate levels check today. The patient continues to have severe depression, and appears to have passive thoughts of dying. MENTAL STATUS EXAMINATION General Appearance and Behavior: Age appropriate, good hygiene, wearing appropriate clothes, good eye contact, cooperative with questioning and polite Cooperation: Participating/engaged Psychomotor Behavior: unremarkable and within normal limits Mood: Depressed Affect and affective range: Congruent with mood Thought Process: Fluent/Logical Thought Content: Within reality, hopelessness Speech: Normal volume, Regular rate and rhythm Intellectual Functioning: Average Suicidal Ideation: Passive Homicidal Ideation: Denies HI Impulse Control: Unimpaired Insight and Judgment: Normal insight and judgment Memory: Normal Attention: Normal Orientation: Alert, oriented Assessment and Plan - Patient Problems (1) MDD (major depressive disorder), recurrent episode, severe Current Visit: Yes Status: Acute Treatment Plan: Continue current medications Due to the psychiatric conditions and treatment listed in the Assessment and Plan - the patient requires continued hospitalization. Will continue inpatient treatment to allow for medication adjustment and monitoring. Will continue q15 min safety checks. Will encourage the use of environmental modifications and non-pharmacologic approaches for the management of behavioral and psychological symptoms. Will continue current psych medications Monitor for medication side effects. Most recent medication adjustments: The patient will continue on medications for physical illnesses, and Hospitalist will closely monitor these Continue intensive physical and occupational therapies. Monitor patient's mood, sleep, appetite, and behavior closely. Encourage patient to participate in individual and group therapeutic sessions on the guillermo. Will provide a safe and therapeutic environment for patient. The patient agreed on the treatment plan, understood the risk, benefit, alternative treatment, potential consequence of no treatment, and gave informed consent. Estimated period of time patient will need to remain in the hospital: [3] Plan for post-hospital care: [Outpatient] Assessment and Plan - Patient Problems (1) MDD (major depressive disorder), recurrent episode, severe Current Visit: Yes Status: Acute Medications and Allergies Allergies Allergy/AdvReac Type Severity Reaction Status Date / Time No Known Allergies Allergy Verified 01/30/18 17:17 Home Medications Medication Instructions Recorded Confirmed Last Taken Type Baclofen [Lioresal] 5 mg PO TID #24 tab 01/22/17 11/29/19 Unknown Rx Diclofenac Potassium 50 mg PO DAILY #30 tablet 01/22/17 11/29/19 Unknown Rx Promethazine /Codeine 5 ml PO Q6H PRN #60 ml 01/22/17 11/29/19 Unknown Rx [Phenergan/Codeine 6.25-10 mg/5Ml] traMADoL [Ultram] 50 mg PO Q6HR PRN #24 tablet 01/22/17 11/29/19 Unknown Rx Sertraline [Zoloft] 25 mg PO QDAY 30 Days #30 tab 06/12/17 11/29/19 Unknown Rx Naproxen [Naprosyn] 500 mg PO BID #14 tablet 06/03/19 11/29/19 Unknown Rx guaiFENesin [Robitussin] 5 ml PO TID PRN #100 ml 06/03/19 11/29/19 Unknown Rx Active Meds: Active Medications Baclofen (Lioresal) 5 mg PO TID [facility] Last Admin: 12/03/19 21:54 Dose: 5 mg Documented by: Diclofenac Sodium (Voltaren) 50 mg PO DAILY [facility] Last Admin: 12/03/19 09:24 Dose: 50 mg Documented by: Divalproex Sodium (Depakote Dr) 250 mg PO BID [facility] Last Admin: 12/03/19 21:54 Dose: 250 mg Documented by: Hydrocortisone Acetate (Hydrocortisone Cr) 1 applic TP Q8H PRN PRN Reason: Skin Irritation Last Admin: 12/03/19 21:51 Dose: 1 applic Documented by: Melatonin (Melatonin) 5 mg PO QHS [facility] Last Admin: 12/03/19 21:53 Dose: 5 mg Documented by: Nicotine (Habitrol) 21 mg TD QDAY [facility] Last Admin: 12/03/19 09:25 Dose: 21 mg Documented by: Pantoprazole Sodium (Protonix) 40 mg PO QDAY [facility] Last Admin: 12/03/19 17:45 Dose: 40 mg Documented by: Risperidone (Risperdal) 1 mg PO BID [facility] Last Admin: 12/03/19 21:56 Dose: 1 mg Documented by: Sertraline HCl (Zoloft) 25 mg PO QDAY [facility] Last Admin: 12/03/19 09:24 Dose: 25 mg Documented by: Tramadol HCl (Ultram) 50 mg PO Q6HR PRN PRN Reason: Pain, Moderate (4-6) Trazodone HCl (Desyrel) 100 mg PO QHS [facility] Last Admin: 12/03/19 21:55 Dose: 100 mg Documented by: Ziprasidone (Geodon) 10 mg IM Q6H PRN PRN Reason: Agitation Results - Results Labs/Vitals: Laboratory Last Values WBC 3.5 K/mm3 (4.5-11.0) L 11/29/19 23:02 RBC 3.09 M/mm3 (3.65-5.03) L 11/29/19 23:02 Hgb 11.1 gm/dl (10.1-14.3) 11/29/19 23:02 Hct 32.8 % (30.3-42.9) 11/29/19 23:02 MCV 106 fl (79-97) H 11/29/19 23:02 MCH 36 pg (28-32) H 11/29/19 23:02 MCHC 34 % (30-34) 11/29/19 23:02 RDW 13.2 % (13.2-15.2) 11/29/19 23:02 Plt Count 149 K/mm3 (140-440) 11/29/19 23:02 Lymph % (Auto) 32.0 % (13.4-35.0) 11/29/19 23:02 [place] % (Auto) 9.3 % (0.0-7.3) H 11/29/19 23:02 Eos % (Auto) 2.8 % (0.0-4.3) 11/29/19 23:02 Baso % (Auto) 0.3 % (0.0-1.8) 11/29/19 23:02 Lymph # 1.1 K/mm3 (1.2-5.4) L 11/29/19 23:02 [place] # 0.3 K/mm3 (0.0-0.8) 11/29/19 23:02 Eos # 0.1 K/mm3 (0.0-0.4) 11/29/19 23:02 Baso # 0.0 K/mm3 (0.0-0.1) 11/29/19 23:02 Seg Neutrophils % 55.6 % (40.0-70.0) 11/29/19 23:02 Seg Neutrophils # 2.0 K/mm3 (1.8-7.7) 11/29/19 23:02 Sodium 140 mmol/L (137-145) 11/29/19 23:02 Potassium 3.9 mmol/L (3.6-5.0) 11/29/19 23:02 Chloride 100.1 mmol/L (98-107) 11/29/19 23:02 Carbon Dioxide 28 mmol/L (22-30) 11/29/19 23:02 Anion Gap 16 mmol/L 11/29/19 23:02 BUN 25 mg/dL (7-17) H 11/29/19 23:02 Creatinine 0.6 mg/dL (0.7-1.2) L 11/29/19 23:02 Estimated GFR > 60 ml/min 11/29/19 23:02 BUN/Creatinine Ratio 42 % 11/29/19 23:02 Glucose 112 mg/dL (65-100) H 11/29/19 23:02 POC Glucose 89 (70-105) 11/28/19 20:15 Hemoglobin A1c 4.6 % (4-6) 11/28/19 16:31 Calcium 9.3 mg/dL (8.4-10.2) 11/29/19 23:02 Total Bilirubin < 0.20 mg/dL (0.1-1.2) 11/29/19 23:02 AST 15 units/L (5-40) 11/29/19 23:02 ALT 7 units/L (7-56) 11/29/19 23:02 Alkaline Phosphatase 79 units/L (35-129) 11/29/19 23:02 Total Protein 6.5 g/dL (6.3-8.2) 11/29/19 23:02 Albumin 3.6 g/dL (3.9-5) L 11/29/19 23:02 Albumin/Globulin Ratio 1.2 % 11/29/19 23:02 Triglycerides 61 mg/dL (2-149) 11/28/19 16:31 Cholesterol 214 mg/dL (50-199) H 11/28/19 16:31 LDL Cholesterol Direct 103 mg/dL (50-130) 11/28/19 16:31 HDL Cholesterol 100 mg/dL (40-59) H 11/28/19 16:31 Cholesterol/HDL Ratio 2.14 % 11/28/19 16:31 TSH 0.757 mlU/mL (0.270-4.200) 11/28/19 16:31 Last Vital Signs Temp 97.4 F L 12/03/19 22:00 Pulse 93 H 12/03/19 22:00 Resp 18 12/03/19 22:00 BP 97/60 12/03/19 22:00 Pulse Ox 96 12/03/19 22:00
[2019-12-04] MEDS: BACLOFEN 10 MG TAB PO SCH ×3 (08:30→20:28)
[2019-12-04] MEDS: DIVALPROEX DR 250 MG TAB PO SCH ×2 (09:17→21:42)
[2019-12-04] MEDS: risperiDONE 1 MG TAB PO SCH ×2 (09:17→21:43)
[2019-12-04] MEDS: PANTOPRAZOLE 40 MG TAB PO SCH (09:17)
[2019-12-04] MEDS: SERTRALINE 25 MG TAB PO SCH (09:17)
[2019-12-04] MEDS: NICOTINE 21 MG/24 HR PATCH TD SCH (09:18)
[2019-12-04] MEDS: DICLOFENAC EC 25 MG TAB PO SCH (09:18)
[2019-12-04] MEDS: traZODone 50 MG TAB PO SCH (21:42)
[2019-12-04] MEDS: MELATONIN 5 MG TAB PO SCH (21:43)
--- NOTE | 2019-12-05 06:50 | Progress Note ---
Subjective Date of service: 12/05/19 Principal diagnosis: Major Depressive Disorder with Psychotic Features Subjective Comment: Per Psych Nurse: Pt received in the activity room quietly doing coloring. A&OX3. Denies SI, HI, or pain. No acute distress observed and none reported. Will continue to monitor for safety. Psych Progress HPI Patient interviewed by me this AM in room, she reports intermittent depressed mood, felt better yesterday evening but too early to tell this AM. She denies SI, HI thoughts. Reports sleeping hard and glad her medicines her now working. She denies having any nightmares last night. Patient says that when getting discharged, she does not want to go back to [facility], because environment there is toxic and she ends up back in hospital. Reason for continuing inpatient treatment: Persistent depressed mood. Medication changes and adjustment made yesterday., valproate levels below therapeutic. Will adjust meds and observe for stability. MENTAL STATUS EXAMINATION General Appearance and Behavior: Age appropriate, good hygiene, wearing appropriate clothes, good eye contact, cooperative with questioning and polite Cooperation: Participating/engaged Psychomotor Behavior: unremarkable and within normal limits Mood: Depressed Affect and affective range: Congruent with mood Thought Process: Fluent/Logical Thought Content: Within reality, hopelessness Speech: Normal volume, Regular rate and rhythm Intellectual Functioning: Average Suicidal Ideation: Passive Homicidal Ideation: Denies HI Impulse Control: Unimpaired Insight and Judgment: Normal insight and judgment Memory: Normal Attention: Normal Orientation: Alert, oriented Assessment and Plan - Patient Problems (1) MDD (major depressive disorder), recurrent episode, severe Current Visit: Yes Status: Acute Treatment Plan: Depakote changed to TID from BID Due to the psychiatric conditions and treatment listed in the Assessment and Plan - the patient requires continued hospitalization. Will continue inpatient treatment to allow for medication adjustment and monitoring. Will continue q15 min safety checks. Will encourage the use of environmental modifications and non-pharmacologic approaches for the management of behavioral and psychological symptoms. Will continue current psych medications Monitor for medication side effects. Most recent medication adjustments: The patient will continue on medications for physical illnesses, and Hospitalist will closely monitor these Continue intensive physical and occupational therapies. Monitor patient's mood, sleep, appetite, and behavior closely. Encourage patient to participate in individual and group therapeutic sessions on the guillermo. Will provide a safe and therapeutic environment for patient. The patient agreed on the treatment plan, understood the risk, benefit, alternative treatment, potential consequence of no treatment, and gave informed consent. Estimated period of time patient will need to remain in the hospital: [2] Plan for post-hospital care: [Outpatient] Assessment and Plan - Patient Problems (1) MDD (major depressive disorder), recurrent episode, severe Current Visit: Yes Status: Acute Medications and Allergies Allergies Allergy/AdvReac Type Severity Reaction Status Date / Time No Known Allergies Allergy Verified 01/30/18 17:17 Home Medications Medication Instructions Recorded Confirmed Last Taken Type Baclofen [Lioresal] 5 mg PO TID #24 tab 01/22/17 11/29/19 Unknown Rx Diclofenac Potassium 50 mg PO DAILY #30 tablet 01/22/17 11/29/19 Unknown Rx Promethazine /Codeine 5 ml PO Q6H PRN #60 ml 01/22/17 11/29/19 Unknown Rx [Phenergan/Codeine 6.25-10 mg/5Ml] traMADoL [Ultram] 50 mg PO Q6HR PRN #24 tablet 01/22/17 11/29/19 Unknown Rx Sertraline [Zoloft] 25 mg PO QDAY 30 Days #30 tab 06/12/17 11/29/19 Unknown Rx Naproxen [Naprosyn] 500 mg PO BID #14 tablet 06/03/19 11/29/19 Unknown Rx guaiFENesin [Robitussin] 5 ml PO TID PRN #100 ml 06/03/19 11/29/19 Unknown Rx Active Meds: Active Medications Baclofen (Lioresal) 5 mg PO TID [facility] Last Admin: 12/04/19 20:28 Dose: 5 mg Documented by: Diclofenac Sodium (Voltaren) 50 mg PO DAILY [facility] Last Admin: 12/04/19 09:18 Dose: 50 mg Documented by: Divalproex Sodium (Depakote Dr) 250 mg PO BID [facility] Last Admin: 12/04/19 21:42 Dose: 250 mg Documented by: Hydrocortisone Acetate (Hydrocortisone Cr) 1 applic TP Q8H PRN PRN Reason: Skin Irritation Last Admin: 12/03/19 21:51 Dose: 1 applic Documented by: Melatonin (Melatonin) 5 mg PO QHS [facility] Last Admin: 12/04/19 21:43 Dose: 5 mg Documented by: Nicotine (Habitrol) 21 mg TD QDAY [facility] Last Admin: 12/04/19 09:18 Dose: 21 mg Documented by: Pantoprazole Sodium (Protonix) 40 mg PO QDAY [facility] Last Admin: 12/04/19 09:17 Dose: 40 mg Documented by: Risperidone (Risperdal) 1 mg PO BID [facility] Last Admin: 12/04/19 21:43 Dose: 1 mg Documented by: Sertraline HCl (Zoloft) 25 mg PO QDAY [facility] Last Admin: 12/04/19 09:17 Dose: 25 mg Documented by: Tramadol HCl (Ultram) 50 mg PO Q6HR PRN PRN Reason: Pain, Moderate (4-6) Trazodone HCl (Desyrel) 100 mg PO QHS [facility] Last Admin: 12/04/19 21:42 Dose: 100 mg Documented by: Ziprasidone (Geodon) 10 mg IM Q6H PRN PRN Reason: Agitation Results - Results Labs/Vitals: Laboratory Last Values WBC 3.5 K/mm3 (4.5-11.0) L 11/29/19 23:02 RBC 3.09 M/mm3 (3.65-5.03) L 11/29/19 23:02 Hgb 11.1 gm/dl (10.1-14.3) 11/29/19 23:02 Hct 32.8 % (30.3-42.9) 11/29/19 23:02 MCV 106 fl (79-97) H 11/29/19 23:02 MCH 36 pg (28-32) H 11/29/19 23:02 MCHC 34 % (30-34) 11/29/19 23:02 RDW 13.2 % (13.2-15.2) 11/29/19 23:02 Plt Count 149 K/mm3 (140-440) 11/29/19 23:02 Lymph % (Auto) 32.0 % (13.4-35.0) 11/29/19 23:02 [place] % (Auto) 9.3 % (0.0-7.3) H 11/29/19 23:02 Eos % (Auto) 2.8 % (0.0-4.3) 11/29/19 23:02 Baso % (Auto) 0.3 % (0.0-1.8) 11/29/19 23:02 Lymph # 1.1 K/mm3 (1.2-5.4) L 11/29/19 23:02 [place] # 0.3 K/mm3 (0.0-0.8) 11/29/19 23:02 Eos # 0.1 K/mm3 (0.0-0.4) 11/29/19 23:02 Baso # 0.0 K/mm3 (0.0-0.1) 11/29/19 23:02 Seg Neutrophils % 55.6 % (40.0-70.0) 11/29/19 23:02 Seg Neutrophils # 2.0 K/mm3 (1.8-7.7) 11/29/19 23:02 Sodium 140 mmol/L (137-145) 11/29/19 23:02 Potassium 3.9 mmol/L (3.6-5.0) 11/29/19 23:02 Chloride 100.1 mmol/L (98-107) 11/29/19 23:02 Carbon Dioxide 28 mmol/L (22-30) 11/29/19 23:02 Anion Gap 16 mmol/L 11/29/19 23:02 BUN 25 mg/dL (7-17) H 11/29/19 23:02 Creatinine 0.6 mg/dL (0.7-1.2) L 11/29/19 23:02 Estimated GFR > 60 ml/min 11/29/19 23:02 BUN/Creatinine Ratio 42 % 11/29/19 23:02 Glucose 112 mg/dL (65-100) H 11/29/19 23:02 POC Glucose 89 (70-105) 11/28/19 20:15 Hemoglobin A1c 4.6 % (4-6) 11/28/19 16:31 Calcium 9.3 mg/dL (8.4-10.2) 11/29/19 23:02 Total Bilirubin < 0.20 mg/dL (0.1-1.2) 11/29/19 23:02 AST 15 units/L (5-40) 11/29/19 23:02 ALT 7 units/L (7-56) 11/29/19 23:02 Alkaline Phosphatase 79 units/L (35-129) 11/29/19 23:02 Total Protein 6.5 g/dL (6.3-8.2) 11/29/19 23:02 Albumin 3.6 g/dL (3.9-5) L 11/29/19 23:02 Albumin/Globulin Ratio 1.2 % 11/29/19 23:02 Triglycerides 61 mg/dL (2-149) 11/28/19 16:31 Cholesterol 214 mg/dL (50-199) H 11/28/19 16:31 LDL Cholesterol Direct 103 mg/dL (50-130) 11/28/19 16:31 HDL Cholesterol 100 mg/dL (40-59) H 11/28/19 16:31 Cholesterol/HDL Ratio 2.14 % 11/28/19 16:31 TSH 0.757 mlU/mL (0.270-4.200) 11/28/19 16:31 Valproic Acid 34.7 ug/mL (50-100) L 12/04/19 09:10 Last Vital Signs Temp 97.7 F 12/04/19 22:00 Pulse 75 12/04/19 22:00 Resp 18 12/04/19 22:00 BP 83/51 12/04/19 22:00 Pulse Ox 97 12/04/19 22:00
[2019-12-05] MEDS: DIVALPROEX DR 250 MG TAB PO SCH ×3 (08:40→21:38)
[2019-12-05] MEDS: BACLOFEN 10 MG TAB PO SCH ×3 (08:40→21:36)
[2019-12-05] MEDS: HYDROCORTISONE 1% CREAM 28.4GM TP PRN (09:48)
[2019-12-05] MEDS: risperiDONE 1 MG TAB PO SCH ×2 (09:49→21:38)
[2019-12-05] MEDS: SERTRALINE 25 MG TAB PO SCH (09:50)
[2019-12-05] MEDS: DICLOFENAC EC 25 MG TAB PO SCH (09:50)
[2019-12-05] MEDS: NICOTINE 21 MG/24 HR PATCH TD SCH (09:50)
[2019-12-05] MEDS: PANTOPRAZOLE 40 MG TAB PO SCH (09:50)
[2019-12-05] MEDS: traZODone 50 MG TAB PO SCH (21:37)
[2019-12-05] MEDS: MELATONIN 5 MG TAB PO SCH (21:38)
--- NOTE | 2019-12-06 07:13 | Progress Note ---
Subjective Date of service: 12/06/19 Principal diagnosis: Major Depressive Disorder with Psychotic Features Subjective Comment: Per Psych Nurse: Patient was calm and pleasant throughout the evening. She had appropriate interactions with peers and staff. She denies si/hi/ah/vh. She is medication compliant. Will continue to monitor patient for safety. Psych Progress HPI Patients reports waking up today feeling irritable, says she's also got a slight headache but denies SI, HI or AVH. Pt endorses having a non disturbed night rest and stable appetite. Has no medication complaints today. Reason for continuing inpatient treatment: Improved mood, thou labile. Valproate levels below therapeutic, will repeat tomorrow with plan to discharge in 2 days if stable mood and no SI, HI. Will adjust meds and observe for stability. MENTAL STATUS EXAMINATION General Appearance and Behavior: Age appropriate, good hygiene, wearing appropriate clothes, good eye contact, cooperative with questioning and polite Cooperation: Participating/engaged Psychomotor Behavior: unremarkable and within normal limits Mood: Depressed Affect and affective range: Congruent with mood Thought Process: Fluent/Logical Thought Content: Within reality, hopelessness Speech: Normal volume, Regular rate and rhythm Intellectual Functioning: Average Suicidal Ideation: Passive Homicidal Ideation: Denies HI Impulse Control: Unimpaired Insight and Judgment: Normal insight and judgment Memory: Normal Attention: Normal Orientation: Alert, oriented Assessment and Plan - Patient Problems (1) MDD (major depressive disorder), recurrent episode, severe Current Visit: Yes Status: Acute Treatment Plan: Depakote changed to TID from BID Due to the psychiatric conditions and treatment listed in the Assessment and Plan - the patient requires continued hospitalization. Will continue inpatient treatment to allow for medication adjustment and monitoring. Will continue q15 min safety checks. Will encourage the use of environmental modifications and non-pharmacologic approaches for the management of behavioral and psychological symptoms. Will continue current psych medications Monitor for medication side effects. Most recent medication adjustments: The patient will continue on medications for physical illnesses, and Hospitalist will closely monitor these Continue intensive physical and occupational therapies. Monitor patient's mood, sleep, appetite, and behavior closely. Encourage patient to participate in individual and group therapeutic sessions on the guillermo. Will provide a safe and therapeutic environment for patient. The patient agreed on the treatment plan, understood the risk, benefit, alternative treatment, potential consequence of no treatment, and gave informed consent. Estimated period of time patient will need to remain in the hospital: [2] Plan for post-hospital care: [Outpatient] Assessment and Plan - Patient Problems (1) MDD (major depressive disorder), recurrent episode, severe Current Visit: Yes Status: Acute Medications and Allergies Allergies Allergy/AdvReac Type Severity Reaction Status Date / Time No Known Allergies Allergy Verified 01/30/18 17:17 Home Medications Medication Instructions Recorded Confirmed Last Taken Type Baclofen [Lioresal] 5 mg PO TID #24 tab 01/22/17 11/29/19 Unknown Rx Diclofenac Potassium 50 mg PO DAILY #30 tablet 01/22/17 11/29/19 Unknown Rx Promethazine /Codeine 5 ml PO Q6H PRN #60 ml 01/22/17 11/29/19 Unknown Rx [Phenergan/Codeine 6.25-10 mg/5Ml] traMADoL [Ultram] 50 mg PO Q6HR PRN #24 tablet 01/22/17 11/29/19 Unknown Rx Sertraline [Zoloft] 25 mg PO QDAY 30 Days #30 tab 06/12/17 11/29/19 Unknown Rx Naproxen [Naprosyn] 500 mg PO BID #14 tablet 06/03/19 11/29/19 Unknown Rx guaiFENesin [Robitussin] 5 ml PO TID PRN #100 ml 06/03/19 11/29/19 Unknown Rx Active Meds: Active Medications Baclofen (Lioresal) 5 mg PO TID [facility] Last Admin: 12/05/19 21:36 Dose: 5 mg Documented by: Diclofenac Sodium (Voltaren) 50 mg PO DAILY [facility] Last Admin: 12/05/19 09:50 Dose: 50 mg Documented by: Divalproex Sodium (Depakote Dr) 250 mg PO TID [facility] Last Admin: 12/05/19 21:38 Dose: 250 mg Documented by: Hydrocortisone Acetate (Hydrocortisone Cr) 1 applic TP Q8H PRN PRN Reason: Skin Irritation Last Admin: 12/05/19 09:48 Dose: 1 applic Documented by: Melatonin (Melatonin) 5 mg PO QHS [facility] Last Admin: 12/05/19 21:38 Dose: 5 mg Documented by: Nicotine (Habitrol) 21 mg TD QDAY [facility] Last Admin: 12/05/19 09:50 Dose: 21 mg Documented by: Pantoprazole Sodium (Protonix) 40 mg PO QDAY [facility] Last Admin: 12/05/19 09:50 Dose: 40 mg Documented by: Risperidone (Risperdal) 1 mg PO BID [facility] Last Admin: 12/05/19 21:38 Dose: 1 mg Documented by: Sertraline HCl (Zoloft) 25 mg PO QDAY [facility] Last Admin: 12/05/19 09:50 Dose: 25 mg Documented by: Tramadol HCl (Ultram) 50 mg PO Q6HR PRN PRN Reason: Pain, Moderate (4-6) Trazodone HCl (Desyrel) 100 mg PO QHS [facility] Last Admin: 12/05/19 21:37 Dose: 100 mg Documented by: Ziprasidone (Geodon) 10 mg IM Q6H PRN PRN Reason: Agitation Results - Results Labs/Vitals: Laboratory Last Values WBC 3.5 K/mm3 (4.5-11.0) L 11/29/19 23:02 RBC 3.09 M/mm3 (3.65-5.03) L 11/29/19 23:02 Hgb 11.1 gm/dl (10.1-14.3) 11/29/19 23:02 Hct 32.8 % (30.3-42.9) 11/29/19 23:02 MCV 106 fl (79-97) H 11/29/19 23:02 MCH 36 pg (28-32) H 11/29/19 23:02 MCHC 34 % (30-34) 11/29/19 23:02 RDW 13.2 % (13.2-15.2) 11/29/19 23:02 Plt Count 149 K/mm3 (140-440) 11/29/19 23:02 Lymph % (Auto) 32.0 % (13.4-35.0) 11/29/19 23:02 [place] % (Auto) 9.3 % (0.0-7.3) H 11/29/19 23:02 Eos % (Auto) 2.8 % (0.0-4.3) 11/29/19 23:02 Baso % (Auto) 0.3 % (0.0-1.8) 11/29/19 23:02 Lymph # 1.1 K/mm3 (1.2-5.4) L 11/29/19 23:02 [place] # 0.3 K/mm3 (0.0-0.8) 11/29/19 23:02 Eos # 0.1 K/mm3 (0.0-0.4) 11/29/19 23:02 Baso # 0.0 K/mm3 (0.0-0.1) 11/29/19 23:02 Seg Neutrophils % 55.6 % (40.0-70.0) 11/29/19 23:02 Seg Neutrophils # 2.0 K/mm3 (1.8-7.7) 11/29/19 23:02 Sodium 140 mmol/L (137-145) 11/29/19 23:02 Potassium 3.9 mmol/L (3.6-5.0) 11/29/19 23:02 Chloride 100.1 mmol/L (98-107) 11/29/19 23:02 Carbon Dioxide 28 mmol/L (22-30) 11/29/19 23:02 Anion Gap 16 mmol/L 11/29/19 23:02 BUN 25 mg/dL (7-17) H 11/29/19 23:02 Creatinine 0.6 mg/dL (0.7-1.2) L 11/29/19 23:02 Estimated GFR > 60 ml/min 11/29/19 23:02 BUN/Creatinine Ratio 42 % 11/29/19 23:02 Glucose 112 mg/dL (65-100) H 11/29/19 23:02 POC Glucose 89 (70-105) 11/28/19 20:15 Hemoglobin A1c 4.6 % (4-6) 11/28/19 16:31 Calcium 9.3 mg/dL (8.4-10.2) 11/29/19 23:02 Total Bilirubin < 0.20 mg/dL (0.1-1.2) 11/29/19 23:02 AST 15 units/L (5-40) 11/29/19 23:02 ALT 7 units/L (7-56) 11/29/19 23:02 Alkaline Phosphatase 79 units/L (35-129) 11/29/19 23:02 Total Protein 6.5 g/dL (6.3-8.2) 11/29/19 23:02 Albumin 3.6 g/dL (3.9-5) L 11/29/19 23:02 Albumin/Globulin Ratio 1.2 % 11/29/19 23:02 Triglycerides 61 mg/dL (2-149) 11/28/19 16:31 Cholesterol 214 mg/dL (50-199) H 11/28/19 16:31 LDL Cholesterol Direct 103 mg/dL (50-130) 11/28/19 16:31 HDL Cholesterol 100 mg/dL (40-59) H 11/28/19 16:31 Cholesterol/HDL Ratio 2.14 % 11/28/19 16:31 TSH 0.757 mlU/mL (0.270-4.200) 11/28/19 16:31 Valproic Acid 34.7 ug/mL (50-100) L 12/04/19 09:10 Last Vital Signs Temp 98.3 F 12/05/19 22:00 Pulse 77 12/05/19 19:13 Resp 18 12/05/19 22:00 BP 91/59 12/05/19 19:13 Pulse Ox 99 12/05/19 19:13
[2019-12-06] MEDS ORDERED: ACETAMINOPHEN 325 MG TAB PO PRN (09:00)
[2019-12-06] MEDS: DICLOFENAC EC 25 MG TAB PO SCH (09:38)
[2019-12-06] MEDS: NICOTINE 21 MG/24 HR PATCH TD SCH (09:38)
[2019-12-06] MEDS: risperiDONE 1 MG TAB PO SCH ×2 (09:39→21:24)
[2019-12-06] MEDS: PANTOPRAZOLE 40 MG TAB PO SCH (09:39)
[2019-12-06] MEDS: BACLOFEN 10 MG TAB PO SCH ×3 (09:39→20:08)
[2019-12-06] MEDS: DIVALPROEX DR 250 MG TAB PO SCH ×3 (09:39→20:08)
[2019-12-06] MEDS: SERTRALINE 25 MG TAB PO SCH (09:39)
[2019-12-06] MEDS: traZODone 50 MG TAB PO SCH (21:23)
[2019-12-06] MEDS: MELATONIN 5 MG TAB PO SCH (21:24)
[2019-12-06] MEDS: HYDROCORTISONE 1% CREAM 28.4GM TP PRN (21:39)
--- NOTE | 2019-12-07 07:16 | Progress Note ---
Subjective Date of service: 12/07/19 Principal diagnosis: Major Depressive Disorder with Psychotic Features Subjective Comment: Per Psych Nurse: pt spent her evening in day room coloring and interacting appropriately with peers, bright affect, mood is stable, good appetite, medicati on compliant, hydrocortisone cream given prn itching on her neck, no report of SI/HI, denies a/v/h, no pain voiced, no distress noted, will continue to monitor for safety. Psych Progress HPI Patient awake and up in bed, says she slept good, yesterday her mood was irritable all day and she does not know why. Patient denies SI or HI, endorses good appetite, and denies AVH. Reason for continuing inpatient treatment: Valproate levels within therapeutic range , observe for mood stability, plan to discharge tomorrow if no reported labile changes and no SI or HI reported. MENTAL STATUS EXAMINATION General Appearance and Behavior: Age appropriate, good hygiene, wearing appropriate clothes, good eye contact, cooperative with questioning and polite Cooperation: Participating/engaged Psychomotor Behavior: unremarkable and within normal limits Mood: Irritable but okay Affect and affective range: Congruent with mood Thought Process: Fluent/Logical Thought Content: Within reality Speech: Normal volume, Regular rate and rhythm Intellectual Functioning: Average Suicidal Ideation: Denies SI Homicidal Ideation: Denies HI Impulse Control: Unimpaired Insight and Judgment: Normal insight and judgment Memory: Normal Attention: Normal Orientation: Alert, oriented Assessment and Plan - Patient Problems (1) MDD (major depressive disorder), recurrent episode, severe Current Visit: Yes Status: Acute Treatment Plan: Depakote changed to TID from BID Due to the psychiatric conditions and treatment listed in the Assessment and Plan - the patient requires continued hospitalization. Will continue inpatient treatment to allow for medication adjustment and monitoring. Will continue q15 min safety checks. Will encourage the use of environmental modifications and non-pharmacologic approaches for the management of behavioral and psychological symptoms. Will continue current psych medications Monitor for medication side effects. Most recent medication adjustments: The patient will continue on medications for physical illnesses, and Hospitalist will closely monitor these Continue intensive physical and occupational therapies. Monitor patient's mood, sleep, appetite, and behavior closely. Encourage patient to participate in individual and group therapeutic sessions on the guillermo. Will provide a safe and therapeutic environment for patient. The patient agreed on the treatment plan, understood the risk, benefit, alternative treatment, potential consequence of no treatment, and gave informed consent. Estimated period of time patient will need to remain in the hospital: [1] Plan for post-hospital care: [Outpatient] Assessment and Plan - Patient Problems (1) MDD (major depressive disorder), recurrent episode, severe Current Visit: Yes Status: Acute Medications and Allergies Allergies Allergy/AdvReac Type Severity Reaction Status Date / Time No Known Allergies Allergy Verified 01/30/18 17:17 Home Medications Medication Instructions Recorded Confirmed Last Taken Type Baclofen [Lioresal] 5 mg PO TID #24 tab 01/22/17 11/29/19 Unknown Rx Diclofenac Potassium 50 mg PO DAILY #30 tablet 01/22/17 11/29/19 Unknown Rx Promethazine /Codeine 5 ml PO Q6H PRN #60 ml 01/22/17 11/29/19 Unknown Rx [Phenergan/Codeine 6.25-10 mg/5Ml] traMADoL [Ultram] 50 mg PO Q6HR PRN #24 tablet 01/22/17 11/29/19 Unknown Rx Sertraline [Zoloft] 25 mg PO QDAY 30 Days #30 tab 06/12/17 11/29/19 Unknown Rx Naproxen [Naprosyn] 500 mg PO BID #14 tablet 06/03/19 11/29/19 Unknown Rx guaiFENesin [Robitussin] 5 ml PO TID PRN #100 ml 06/03/19 11/29/19 Unknown Rx Active Meds: Active Medications Acetaminophen (Tylenol) 975 mg PO Q6H PRN PRN Reason: Pain, Mild (1-3) Baclofen (Lioresal) 5 mg PO TID [facility] Last Admin: 12/06/19 20:08 Dose: 5 mg Documented by: Diclofenac Sodium (Voltaren) 50 mg PO DAILY [facility] Last Admin: 12/06/19 09:38 Dose: 50 mg Documented by: Divalproex Sodium (Depakote Dr) 250 mg PO TID [facility] Last Admin: 12/06/19 20:08 Dose: 250 mg Documented by: Hydrocortisone Acetate (Hydrocortisone Cr) 1 applic TP Q8H PRN PRN Reason: Skin Irritation Last Admin: 12/06/19 21:39 Dose: 1 applic Documented by: Melatonin (Melatonin) 5 mg PO QHS [facility] Last Admin: 12/06/19 21:24 Dose: 5 mg Documented by: Nicotine (Habitrol) 21 mg TD QDAY [facility] Last Admin: 12/06/19 09:38 Dose: 21 mg Documented by: Pantoprazole Sodium (Protonix) 40 mg PO QDAY [facility] Last Admin: 12/06/19 09:39 Dose: 40 mg Documented by: Risperidone (Risperdal) 1 mg PO BID [facility] Last Admin: 12/06/19 21:24 Dose: 1 mg Documented by: Sertraline HCl (Zoloft) 25 mg PO QDAY [facility] Last Admin: 12/06/19 09:39 Dose: 25 mg Documented by: Tramadol HCl (Ultram) 50 mg PO Q6HR PRN PRN Reason: Pain, Moderate (4-6) Trazodone HCl (Desyrel) 100 mg PO QHS [facility] Last Admin: 12/06/19 21:23 Dose: 100 mg Documented by: Ziprasidone (Geodon) 10 mg IM Q6H PRN PRN Reason: Agitation Results - Results Labs/Vitals: Laboratory Last Values WBC 3.5 K/mm3 (4.5-11.0) L 11/29/19 23:02 RBC 3.09 M/mm3 (3.65-5.03) L 11/29/19 23:02 Hgb 11.1 gm/dl (10.1-14.3) 11/29/19 23:02 Hct 32.8 % (30.3-42.9) 11/29/19 23:02 MCV 106 fl (79-97) H 11/29/19 23:02 MCH 36 pg (28-32) H 11/29/19 23:02 MCHC 34 % (30-34) 11/29/19 23:02 RDW 13.2 % (13.2-15.2) 11/29/19 23:02 Plt Count 149 K/mm3 (140-440) 11/29/19 23:02 Lymph % (Auto) 32.0 % (13.4-35.0) 11/29/19 23:02 [place] % (Auto) 9.3 % (0.0-7.3) H 11/29/19 23:02 Eos % (Auto) 2.8 % (0.0-4.3) 11/29/19 23:02 Baso % (Auto) 0.3 % (0.0-1.8) 11/29/19 23:02 Lymph # 1.1 K/mm3 (1.2-5.4) L 11/29/19 23:02 [place] # 0.3 K/mm3 (0.0-0.8) 11/29/19 23:02 Eos # 0.1 K/mm3 (0.0-0.4) 11/29/19 23:02 Baso # 0.0 K/mm3 (0.0-0.1) 11/29/19 23:02 Seg Neutrophils % 55.6 % (40.0-70.0) 11/29/19 23:02 Seg Neutrophils # 2.0 K/mm3 (1.8-7.7) 11/29/19 23:02 Sodium 140 mmol/L (137-145) 11/29/19 23:02 Potassium 3.9 mmol/L (3.6-5.0) 11/29/19 23:02 Chloride 100.1 mmol/L (98-107) 11/29/19 23:02 Carbon Dioxide 28 mmol/L (22-30) 11/29/19 23:02 Anion Gap 16 mmol/L 11/29/19 23:02 BUN 25 mg/dL (7-17) H 11/29/19 23:02 Creatinine 0.6 mg/dL (0.7-1.2) L 11/29/19 23:02 Estimated GFR > 60 ml/min 11/29/19 23:02 BUN/Creatinine Ratio 42 % 11/29/19 23:02 Glucose 112 mg/dL (65-100) H 11/29/19 23:02 POC Glucose 89 (70-105) 11/28/19 20:15 Hemoglobin A1c 4.6 % (4-6) 11/28/19 16:31 Calcium 9.3 mg/dL (8.4-10.2) 11/29/19 23:02 Total Bilirubin < 0.20 mg/dL (0.1-1.2) 11/29/19 23:02 AST 15 units/L (5-40) 11/29/19 23:02 ALT 7 units/L (7-56) 11/29/19 23:02 Alkaline Phosphatase 79 units/L (35-129) 11/29/19 23:02 Total Protein 6.5 g/dL (6.3-8.2) 11/29/19 23:02 Albumin 3.6 g/dL (3.9-5) L 11/29/19 23:02 Albumin/Globulin Ratio 1.2 % 11/29/19 23:02 Triglycerides 61 mg/dL (2-149) 11/28/19 16:31 Cholesterol 214 mg/dL (50-199) H 11/28/19 16:31 LDL Cholesterol Direct 103 mg/dL (50-130) 11/28/19 16:31 HDL Cholesterol 100 mg/dL (40-59) H 11/28/19 16:31 Cholesterol/HDL Ratio 2.14 % 11/28/19 16:31 TSH 0.757 mlU/mL (0.270-4.200) 11/28/19 16:31 Valproic Acid 34.7 ug/mL (50-100) L 12/04/19 09:10 Last Vital Signs Temp 97.6 F 12/06/19 19:32 Pulse 69 12/06/19 19:32 Resp 18 12/06/19 19:32 BP 95/58 12/06/19 19:32 Pulse Ox 98 12/06/19 19:32
[2019-12-07] MEDS: BACLOFEN 10 MG TAB PO SCH ×3 (08:33→20:42)
[2019-12-07] MEDS: DIVALPROEX DR 250 MG TAB PO SCH ×3 (08:34→20:43)
[2019-12-07] MEDS: PANTOPRAZOLE 40 MG TAB PO SCH (10:25)
[2019-12-07] MEDS: SERTRALINE 25 MG TAB PO SCH (10:25)
[2019-12-07] MEDS: risperiDONE 1 MG TAB PO SCH ×2 (10:25→21:12)
[2019-12-07] MEDS: DICLOFENAC EC 25 MG TAB PO SCH (10:26)
[2019-12-07] MEDS: NICOTINE 21 MG/24 HR PATCH TD SCH (10:27)
[2019-12-07] MEDS: MELATONIN 5 MG TAB PO SCH (21:12)
[2019-12-07] MEDS: traZODone 50 MG TAB PO SCH (21:12)
--- NOTE | 2019-12-08 07:16 | Progress Note ---
Subjective Date of service: 12/08/19 Principal diagnosis: Major Depressive Disorder with Psychotic Features Subjective Comment: Per Psych Nurse: pt spent her evening in day room coloring and interacting appropriately with peers, bright affect, mood is stable, good appetite, medication compliant, hydrocortisone cream given prn itching on her neck, no report of SI/HI, denies a/v/h, no pain voiced, no distress noted, will continue to monitor for safety. Psych Progress HPI Patient reports sleeping well, feeling good and excited about going home today. Denies SI/HI and also denies AVH. No medication side effects complaints. Reason for continuing inpatient treatment: Patient to be discharged today. MENTAL STATUS EXAMINATION General Appearance and Behavior: Age appropriate, good hygiene, wearing appropriate clothes, good eye contact, cooperative with questioning and polite Cooperation: Participating/engaged Psychomotor Behavior: unremarkable and within normal limits Mood: good Affect and affective range: Congruent with mood Thought Process: Fluent/Logical Thought Content: Within reality Speech: Normal volume, Regular rate and rhythm Intellectual Functioning: Average Suicidal Ideation: Denies SI Homicidal Ideation: Denies HI Impulse Control: Unimpaired Insight and Judgment: Normal insight and judgment Memory: Normal Attention: Normal Orientation: Alert, oriented Assessment and Plan - Patient Problems (1) MDD (major depressive disorder), recurrent episode, severe Current Visit: Yes Status: Acute Treatment Plan: To be discharged today Due to the psychiatric conditions and treatment listed in the Assessment and Plan - the patient requires continued hospitalization. Will continue inpatient treatment to allow for medication adjustment and monitoring. Will continue q15 min safety checks. Will encourage the use of environmental modifications and non-pharmacologic approaches for the management of behavioral and psychological symptoms. Will continue current psych medications Monitor for medication side effects. Most recent medication adjustments: The patient will continue on medications for physical illnesses, and Hospitalist will closely monitor these Continue intensive physical and occupational therapies. Monitor patient's mood, sleep, appetite, and behavior closely. Encourage patient to participate in individual and group therapeutic sessions on the guillermo. Will provide a safe and therapeutic environment for patient. The patient agreed on the treatment plan, understood the risk, benefit, alternative treatment, potential consequence of no treatment, and gave informed consent. Estimated period of time patient will need to remain in the hospital: [0] Plan for post-hospital care: [Outpatient] Assessment and Plan - Patient Problems (1) MDD (major depressive disorder), recurrent episode, severe Current Visit: Yes Status: Acute Medications and Allergies Allergies Allergy/AdvReac Type Severity Reaction Status Date / Time No Known Allergies Allergy Verified 01/30/18 17:17 Home Medications Medication Instructions Recorded Confirmed Last Taken Type Baclofen [Lioresal] 5 mg PO TID #24 tab 01/22/17 11/29/19 Unknown Rx Diclofenac Potassium 50 mg PO DAILY #30 tablet 01/22/17 11/29/19 Unknown Rx Promethazine /Codeine 5 ml PO Q6H PRN #60 ml 01/22/17 11/29/19 Unknown Rx [Phenergan/Codeine 6.25-10 mg/5Ml] traMADoL [Ultram] 50 mg PO Q6HR PRN #24 tablet 01/22/17 11/29/19 Unknown Rx Sertraline [Zoloft] 25 mg PO QDAY 30 Days #30 tab 06/12/17 11/29/19 Unknown Rx Naproxen [Naprosyn] 500 mg PO BID #14 tablet 06/03/19 11/29/19 Unknown Rx guaiFENesin [Robitussin] 5 ml PO TID PRN #100 ml 06/03/19 11/29/19 Unknown Rx Active Meds: Active Medications Acetaminophen (Tylenol) 975 mg PO Q6H PRN PRN Reason: Pain, Mild (1-3) Baclofen (Lioresal) 5 mg PO TID [facility] Last Admin: 12/07/19 20:42 Dose: 5 mg Documented by: Diclofenac Sodium (Voltaren) 50 mg PO DAILY [facility] Last Admin: 12/07/19 10:26 Dose: 50 mg Documented by: Divalproex Sodium (Depakote Dr) 250 mg PO TID [facility] Last Admin: 12/07/19 20:43 Dose: 250 mg Documented by: Hydrocortisone Acetate (Hydrocortisone Cr) 1 applic TP Q8H PRN PRN Reason: Skin Irritation Last Admin: 12/06/19 21:39 Dose: 1 applic Documented by: Melatonin (Melatonin) 5 mg PO QHS [facility] Last Admin: 12/07/19 21:12 Dose: 5 mg Documented by: Nicotine (Habitrol) 21 mg TD QDAY [facility] Last Admin: 12/07/19 10:27 Dose: 21 mg Documented by: Pantoprazole Sodium (Protonix) 40 mg PO QDAY [facility] Last Admin: 12/07/19 10:25 Dose: 40 mg Documented by: Risperidone (Risperdal) 1 mg PO BID [facility] Last Admin: 12/07/19 21:12 Dose: 1 mg Documented by: Sertraline HCl (Zoloft) 25 mg PO QDAY [facility] Last Admin: 12/07/19 10:25 Dose: 25 mg Documented by: Tramadol HCl (Ultram) 50 mg PO Q6HR PRN PRN Reason: Pain, Moderate (4-6) Trazodone HCl (Desyrel) 100 mg PO QHS [facility] Last Admin: 12/07/19 21:12 Dose: 100 mg Documented by: Ziprasidone (Geodon) 10 mg IM Q6H PRN PRN Reason: Agitation Results - Results Labs/Vitals: Laboratory Last Values WBC 3.5 K/mm3 (4.5-11.0) L 11/29/19 23:02 RBC 3.09 M/mm3 (3.65-5.03) L 11/29/19 23:02 Hgb 11.1 gm/dl (10.1-14.3) 11/29/19 23:02 Hct 32.8 % (30.3-42.9) 11/29/19 23:02 MCV 106 fl (79-97) H 11/29/19 23:02 MCH 36 pg (28-32) H 11/29/19 23:02 MCHC 34 % (30-34) 11/29/19 23:02 RDW 13.2 % (13.2-15.2) 11/29/19 23:02 Plt Count 149 K/mm3 (140-440) 11/29/19 23:02 Lymph % (Auto) 32.0 % (13.4-35.0) 11/29/19 23:02 [place] % (Auto) 9.3 % (0.0-7.3) H 11/29/19 23:02 Eos % (Auto) 2.8 % (0.0-4.3) 11/29/19 23:02 Baso % (Auto) 0.3 % (0.0-1.8) 11/29/19 23:02 Lymph # 1.1 K/mm3 (1.2-5.4) L 11/29/19 23:02 [place] # 0.3 K/mm3 (0.0-0.8) 11/29/19 23:02 Eos # 0.1 K/mm3 (0.0-0.4) 11/29/19 23:02 Baso # 0.0 K/mm3 (0.0-0.1) 11/29/19 23:02 Seg Neutrophils % 55.6 % (40.0-70.0) 11/29/19 23:02 Seg Neutrophils # 2.0 K/mm3 (1.8-7.7) 11/29/19 23:02 Sodium 140 mmol/L (137-145) 11/29/19 23:02 Potassium 3.9 mmol/L (3.6-5.0) 11/29/19 23:02 Chloride 100.1 mmol/L (98-107) 11/29/19 23:02 Carbon Dioxide 28 mmol/L (22-30) 11/29/19 23:02 Anion Gap 16 mmol/L 11/29/19 23:02 BUN 25 mg/dL (7-17) H 11/29/19 23:02 Creatinine 0.6 mg/dL (0.7-1.2) L 11/29/19 23:02 Estimated GFR > 60 ml/min 11/29/19 23:02 BUN/Creatinine Ratio 42 % 11/29/19 23:02 Glucose 112 mg/dL (65-100) H 11/29/19 23:02 POC Glucose 89 (70-105) 11/28/19 20:15 Hemoglobin A1c 4.6 % (4-6) 11/28/19 16:31 Calcium 9.3 mg/dL (8.4-10.2) 11/29/19 23:02 Total Bilirubin < 0.20 mg/dL (0.1-1.2) 11/29/19 23:02 AST 15 units/L (5-40) 11/29/19 23:02 ALT 7 units/L (7-56) 11/29/19 23:02 Alkaline Phosphatase 79 units/L (35-129) 11/29/19 23:02 Total Protein 6.5 g/dL (6.3-8.2) 11/29/19 23:02 Albumin 3.6 g/dL (3.9-5) L 11/29/19 23:02 Albumin/Globulin Ratio 1.2 % 11/29/19 23:02 Triglycerides 61 mg/dL (2-149) 11/28/19 16:31 Cholesterol 214 mg/dL (50-199) H 11/28/19 16:31 LDL Cholesterol Direct 103 mg/dL (50-130) 11/28/19 16:31 HDL Cholesterol 100 mg/dL (40-59) H 11/28/19 16:31 Cholesterol/HDL Ratio 2.14 % 11/28/19 16:31 TSH 0.757 mlU/mL (0.270-4.200) 11/28/19 16:31 Valproic Acid 65.1 ug/mL (50-100) 12/07/19 09:40 Last Vital Signs Temp 98.0 F 12/07/19 19:58 Pulse 65 12/07/19 19:58 Resp 18 12/07/19 19:58 BP 111/65 12/07/19 19:58 Pulse Ox 100 12/07/19 19:58
[2019-12-08] MEDS: DIVALPROEX DR 250 MG TAB PO SCH (07:59)
[2019-12-08] MEDS: BACLOFEN 10 MG TAB PO SCH (07:59)
[2019-12-08 08:48] VITALS: BP 102/59
[2019-12-08] MEDS: DICLOFENAC EC 25 MG TAB PO SCH (10:00)
[2019-12-08] MEDS: risperiDONE 1 MG TAB PO SCH (10:01)
[2019-12-08] MEDS: PANTOPRAZOLE 40 MG TAB PO SCH (10:01)
[2019-12-08] MEDS: SERTRALINE 25 MG TAB PO SCH (10:01)
[2019-12-08] MEDS: NICOTINE 21 MG/24 HR PATCH TD SCH (10:01)
--- NOTE | 2019-12-08 12:06 | Discharge Summary ---
Providers - Providers Date of Admission: 11/28/19 13:59 Date of discharge: 12/08/19 Attending physician: NANI MCFARLAND MD 11/28/19 13:59 Consult to Physician [CONS] Routine Comment: Consulting Provider: JURGEN MATA Physician Instructions: Reason For Exam: manage medical conditions Primary care physician: [employer] Hospitalization Reason for admission: Danger to self, Severe anxiety/depression Condition: Good Hospital course: The patient was provided inpatient psychiatric treatment with safe and supportive environment, group/individual therapy, psychiatric medication, medication adjustment, adverse effect monitor, medical evaluation, medical treatment, social service assessment, social support meeting, placement assessment and psycho-education. The patients mood, cognition, behavior, motivation, compliance to treatment and appreciation on family/social support are improved and stabilized. At the time of discharge, the patient had no suicidal ideas, no homicidal ideas, no aggressive thoughts, no endangering behavior and no debilitating adverse effects. The patient agreed on the treatment plan, understood the risk, benefit, alternative treatment, potential consequence of no treatment, and gave informed consent Disposition: DC-30 STILL A PATIENT Allergies/Adverse Reactions: Allergies No Known Allergies Allergy (Verified 01/30/18 17:17) Vital Signs: Last Vital Signs Temp 97.2 F L 12/08/19 07:28 Pulse 85 12/08/19 10:00 Resp 18 12/08/19 07:28 BP 102/59 12/08/19 07:28 Pulse Ox 100 12/08/19 07:28 Last Lab: Laboratory Last Values WBC 3.5 K/mm3 (4.5-11.0) L 11/29/19 23:02 RBC 3.09 M/mm3 (3.65-5.03) L 11/29/19 23:02 Hgb 11.1 gm/dl (10.1-14.3) 11/29/19 23:02 Hct 32.8 % (30.3-42.9) 11/29/19 23:02 MCV 106 fl (79-97) H 11/29/19 23:02 MCH 36 pg (28-32) H 11/29/19 23:02 MCHC 34 % (30-34) 11/29/19 23:02 RDW 13.2 % (13.2-15.2) 11/29/19 23:02 Plt Count 149 K/mm3 (140-440) 11/29/19 23:02 Lymph % (Auto) 32.0 % (13.4-35.0) 11/29/19 23:02 Dickinson % (Auto) 9.3 % (0.0-7.3) H 11/29/19 23:02 Eos % (Auto) 2.8 % (0.0-4.3) 11/29/19 23:02 Baso % (Auto) 0.3 % (0.0-1.8) 11/29/19 23:02 Lymph # 1.1 K/mm3 (1.2-5.4) L 11/29/19 23:02 Dickinson # 0.3 K/mm3 (0.0-0.8) 11/29/19 23:02 Eos # 0.1 K/mm3 (0.0-0.4) 11/29/19 23:02 Baso # 0.0 K/mm3 (0.0-0.1) 11/29/19 23:02 Seg Neutrophils % 55.6 % (40.0-70.0) 11/29/19 23:02 Seg Neutrophils # 2.0 K/mm3 (1.8-7.7) 11/29/19 23:02 Sodium 140 mmol/L (137-145) 11/29/19 23:02 Potassium 3.9 mmol/L (3.6-5.0) 11/29/19 23:02 Chloride 100.1 mmol/L (98-107) 11/29/19 23:02 Carbon Dioxide 28 mmol/L (22-30) 11/29/19 23:02 Anion Gap 16 mmol/L 11/29/19 23:02 BUN 25 mg/dL (7-17) H 11/29/19 23:02 Creatinine 0.6 mg/dL (0.7-1.2) L 11/29/19 23:02 Estimated GFR > 60 ml/min 11/29/19 23:02 BUN/Creatinine Ratio 42 % 11/29/19 23:02 Glucose 112 mg/dL (65-100) H 11/29/19 23:02 POC Glucose 89 (70-105) 11/28/19 20:15 Hemoglobin A1c 4.6 % (4-6) 11/28/19 16:31 Calcium 9.3 mg/dL (8.4-10.2) 11/29/19 23:02 Total Bilirubin < 0.20 mg/dL (0.1-1.2) 11/29/19 23:02 AST 15 units/L (5-40) 11/29/19 23:02 ALT 7 units/L (7-56) 11/29/19 23:02 Alkaline Phosphatase 79 units/L (35-129) 11/29/19 23:02 Total Protein 6.5 g/dL (6.3-8.2) 11/29/19 23:02 Albumin 3.6 g/dL (3.9-5) L 11/29/19 23:02 Albumin/Globulin Ratio 1.2 % 11/29/19 23:02 Triglycerides 61 mg/dL (2-149) 11/28/19 16:31 Cholesterol 214 mg/dL (50-199) H 11/28/19 16:31 LDL Cholesterol Direct 103 mg/dL (50-130) 11/28/19 16:31 HDL Cholesterol 100 mg/dL (40-59) H 11/28/19 16:31 Cholesterol/HDL Ratio 2.14 % 11/28/19 16:31 TSH 0.757 mlU/mL (0.270-4.200) 11/28/19 16:31 Valproic Acid 65.1 ug/mL (50-100) 12/07/19 09:40 - Discharge Diagnoses (1) MDD (major depressive disorder), recurrent episode, severe Status: Acute Core Measure Documentation - Palliative Care Palliative Care/ Comfort Measures: Not Applicable - Core Measures Any of the following diagnoses?: none Exam - Constitutional Vitals: Temp Pulse Resp BP Pulse Ox 97.2 F L 85 18 102/59 100 12/08/19 07:28 12/08/19 10:00 12/08/19 07:28 12/08/19 07:28 12/08/19 07:28 - EENT Eyes: Present: PERRL, EOM intact ENT: hearing intact, clear oral mucosa - Neck Neck: Present: supple, normal ROM - Respiratory Respiratory effort: normal - Abdominal Female genitourinary: Present: normal - Integumentary Integumentary: Present: warm, dry, rash Plan Care Plan Goals: Goals: Maintain good and stable mental health. Plan of Treatment: The patient should be compliant with medications, not to use drugs and not to drink alcohol. The patient understands that if suicidal ideas, homicidal ideas, or any endangering thoughts arise, the patient should immediately seek for emergent assistance including but not limited to crisis hot line and emergency room. Follow up with outpatient Psychiatrist and PCP within 7 - 14 days of discharge. Follow up with: PRIMARY CARE,MD [Primary Care Provider] - 7 Days Prescriptions: traZODone [Desyrel] 100 mg PO QHS #30 tablet Melatonin [Melatonin 5MG TAB] 5 mg PO QHS #[address] [Depakote Dr] 500 mg PO BID #60 tablet Nicotine [Habitrol] 21 mg TD QDAY #15 patch Hydrocortisone 1% [Hydrocortisone 1% CREAM] 1 applic TP Q8H PRN #1 tube PRN Reason: Skin Irritation Baclofen [Lioresal] 5 mg PO TID #21 tablet risperiDONE [RisperDAL] 1 mg PO BID #60 tablet Sertraline [Zoloft] 25 mg PO QDAY #30 tablet
== END 2019-12-08 11:08 | disposition home or self-care (01) | DRG 885 ==
LOC: UNDOADMIN 13:50 → 3A 13:50 → 5A 13:59
PROVIDERS: ADMIT Psychiatry & Neurology Psychiatry; ATTEND Psychiatry & Neurology Psychiatry
DX: F33.3 Major depressive disorder, recurrent, severe with psychotic symptoms (principal); F14.10 Cocaine abuse, uncomplicated; M19.90 Unspecified osteoarthritis, unspecified site; Z59.0 Homelessness; Z79.899 Other long term (current) drug therapy
CPT/HCPCS: 36415; 80048; 80053; 80061; 80076; 80164; 80307; 80320; 81001; 82962; 83036; 84443; 85025; 93005; G0378; A6250; G0480

== ENCOUNTER 2020-07-26 11:26 | Outpatient (CLI) | payer MEDICARE | END 2020-07-26 11:27 | disposition home or self-care (01) | LOC: LAB 11:26 | DX: F31.9 Bipolar disorder, unspecified (principal) | CPT/HCPCS: 36415; 80164 ==